=== PATIENT | male | born 1945 | race Caucasian/White ===

== ENCOUNTER 2017-09-09 09:50 | Emergency (ER) | payer MEDICARE ==
[2017-09-09 10:17] LABS: Bilirubin Negative (Negative); Blood, Urine Large (Negative); Clarity CLOUDY (Clear); Glucose, Urine (Dipstick) Negative (Negative); Leukocyte Large (Negative); Nitrite Negative (Negative); Protein, Urine (Dipstick) Negative (Neg-Trace); Specific Gravity, Urine 1.004 (1.002-1.036); Urobilinogen 0.2 mg/dL (0.2-1.0)
[2017-09-09 10:19] LABS: Bacteria/HPF Rare-Few HPF (None Seen); Hyaline Casts/LPF 0-3 HYALINE CAST LPF (0-3 Hyaline); Pathc Cast-AUWi Flag 0.43 (0-2.49); Squamous Epithelial None Seen HPF (0-3)
[2017-09-09 10:36] LABS: ALT (SGPT) 57 U/L (8-55); AST (SGOT) 48 U/L (5-34); Alkaline Phosphatase 102 U/L (40-150); Anion Gap 11 mmol/L (10-20); BUN (Urea Nitrogen) 15 mg/dL (8.4-25.7); Bilirubin, Total 1.1 mg/dL (0.2-1.2); Calc. Creatinine Clearance 0 mL/min (70-130); Calcium 9.2 mg/dL (7.8-10.44); Carbon Dioxide 27 mmol/L (23-31); Chloride 104 mmol/L (98-107); Estimated GFR-MDRD 83; Globulin 3.3 g/dL (2.4-3.5); Glucose 102 mg/dL (80-115); Potassium 4.6 mmol/L (3.5-5.1); Protein, Total 7.3 g/dL (5.8-8.1); Sodium 137 mmol/L (136-145)
[2017-09-09] MEDS ORDERED: Cephalexin 250 MG CAP ONE (10:38)
[2017-09-09 11:13] LABS: Hemoglobin 17.1 g/dL (14.0-18.0); Mean Corpuscular HGB CONC 33.5 g/dL (32.0-36.0); Mean Corpuscular Hemoglobin 31.4 pg (27.0-31.0); Mean Corpuscular Volume 93.7 fl (80.0-94.0); Mean Platelet Volume 6.7 fL (7.4-10.4); Platelet Count 223 thou/uL (130-400); RBC Distribution Width 12.3 % (11.5-14.5); Red Blood Cell (RBC) Count 5.44 mill/uL (4.70-6.10); White Blood Cell (WBC) Count 9.7 thou/uL (4.8-10.8)
[2017-09-09 11:15] LABS: Band 1 % (5-11); Lymphocytes 14 % (21-51); MDiff Complete? YES; Monocytes 9 % (0-10); Neutrophil 76 % (42-75); PLT Morphology Comment Appears Adequate; RBC Morphology Normal
== END 2017-09-09 11:40 | disposition home or self-care (01) ==
LOC: ERS 09:50
DX: N39.0 Urinary tract infection, site not specified (principal); I48.91 Unspecified atrial fibrillation; I10 Essential (primary) hypertension; F32.9 Major depressive disorder, single episode, unspecified; Z79.899 Other long term (current) drug therapy; Z79.01 Long term (current) use of anticoagulants; Z79.82 Long term (current) use of aspirin; Z86.73 Personal history of transient ischemic attack (TIA), and cerebral infarction without residual deficits
CPT/HCPCS: 36415; 80053; 81003; 81015; 85025; 87077; 87086; 87186; 99283

== ENCOUNTER 2019-07-02 14:16 | Outpatient (CLI) | payer MEDICARE ==
--- NOTE | 2019-07-02 16:12 | MRI ---
Exam: MRI cervical spine without contrast HISTORY: Cervical spondylosis with myelopathy. COMPARISON: None FINDINGS: Appropriate T1 marrow signal intensity of the cervical vertebra. Cervical spine vertebral body heigh t is maintained. There is no fracture. No significant STIR hyperintensity to suggest vertebral body edema or ligamentous injury. Visualized brain parenchyma, cervicomedullary junction, cervical cord and the upper thoracic cord hav e a normal size and signal intensity Spondylolisthesis: C2-C3: 2.4 mm of anterolisthesis C3-C4: 2.2 mm of anterolisthesis C4-C5: 3.7 mm of anterolisthesis C5-C6: 2.4 mm of retrolisthesis C2-C3: No significant central canal stenosis. Bilateral facet hypertrophy. Mild to moderate bilateral neural foraminal narrowing. C3-C4: Broad-based disc osteophyte complex abuts the thecal sac. Subarachnoid space is maintained. Mi ld central canal stenosis. Moderate bilateral facet hypertrophy as well as degenerative change of the uncovertebral joints. Moderate bilateral neural foraminal narrowing C4-C5: Broad-based discussed by complex abuts the thecal sac. Subarachnoid space is maintained. No si gnificant central canal stenosis. Moderate right facet hypertrophy. Moderate right and left foraminal narrowing due to uncovertebral hypertrophy as well as right-sided facet hypertrophy. C5-C6: Broad-based discussed by complex with severe loss of disc space height. Mild central canal maty nosis. Moderate to severe right and left neural foraminal narrowing. C6-C7: Broad-based discussed by complex abuts the thecal sac. Mild central canal stenosis. Moderate t o severe bilateral neural foraminal C7-T1: No significant central canal stenosis. Mild right neural foraminal narrowing. Left neural fora men is patent. T1-T2: Sagittal images demonstrate grade 1 anterolisthesis of T1 upon T2 IMPRESSION: Degenerative changes of the cervical spine as described above. Transcribed Date/Time: 07/02/2019 4:27 PM
== END 2019-07-02 14:17 | disposition home or self-care (01) ==
LOC: TBSIIMAG 14:16
PROVIDERS: ATTEND Neurological Surgery
DX: M47.12 Other spondylosis with myelopathy, cervical region (principal); M47.812 Spondylosis without myelopathy or radiculopathy, cervical region
CPT/HCPCS: 72141

== ENCOUNTER 2019-08-11 06:49 | Outpatient (CLI) | payer MEDICARE ==
[2019-08-11 12:42] LABS: Mean Corpuscular HGB CONC 31.9 g/dL (32.0-36.0); Mean Corpuscular Volume 91.1 fL (78.0-98.0); Mean Platelet Volume 7.8 fL (7.4-10.4); Platelet Count 196 thou/uL (130-400); RBC Distribution Width 14.4 % (11.5-14.5); Red Blood Cell (RBC) Count 5.52 mill/uL (4.70-6.10); White Blood Cell (WBC) Count 5.7 thou/uL (4.8-10.8)
[2019-08-11 12:58] LABS: PTT 29.5 SEC (22.9-36.1); Prothrombin Time 13.3 SEC (12.0-14.7)
--- NOTE | 2019-08-11 16:31 | EKG ---
Test Reason : Blood Pressure : / mmHG Vent. Rate : 086 BPM Atrial Rate : 086 BPM P-R Int : 138 ms QRS Dur : 094 ms QT Int : 356 ms P-R-T Axes : 028 -07 024 degrees QTc Int : 426 ms Sinus rhythm with occasional Premature ventricular complexes Otherwise normal ECG No previous ECGs available Confirmed by DR. Jim ITNOCO ([id number]) on 08/11/2019 4:31:13 PM Referred By: ARDEN Confirmed By:DR. Jim TINOCO
== END 2019-08-11 06:50 | disposition home or self-care (01) ==
LOC: LABBT 06:49
PROVIDERS: ATTEND Neurological Surgery
DX: Z01.818 Encounter for other preprocedural examination (principal); M48.061 Spinal stenosis, lumbar region without neurogenic claudication
CPT/HCPCS: 85027; 85610; 85730; 93005; 93010

== ENCOUNTER 2019-08-14 10:44 | Day surgery (SDC) | payer MEDICARE ==
[2019-08-11 11:33] VITALS: BMI 31.6
--- NOTE | 2019-08-13 08:28 | HP ---
ANTICIPATED DATE OF SURGERY: 08/14/2019, for a foramin facet laminectomy, case #[id number]. CHIEF COMPLAINT: "My back and legs hurt." HISTORY OF PRESENT ILLNESS: Cheo Campos is a 74-year-old male with a history of Guillain Fowler syndrome, stroke, and chronic back pain, who comes in for evaluation of back pain as well as radiating leg discomfort. Mr. Campos had this back and leg trouble for a number of years. He works as a rodriges for construction company and over the years, he has worsening back issues. At times, he has been managed with injections. He has experience his back going out for weeks where he could not work. He has done some modifications to his activities to get the pain to go away and he has taken a number of medications over decades. None of this has made permanent difference. He is here to see if decompression would be an option for him. He has questions about VertiFlex device as well as laminectomy. Mr. 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 He ended having a tracheostomy from that and paralysis from the neck down, only to have all his functions return slowly thereafter. In August 2017, he stated that he suffered a stroke and was seen at the [facility] in [place]. They tried a catheter-based treatment, but the vessels were too small to retrieve clot, or a stent. He recovered from both of these episodes. He has been able to work and be productive at work. Mr. Campos has some urinary urgency, but no yanira incontinence. He has leg symptoms that are more prominent on the right than the left currently, but they change from side to side. There is residual numbness from the Guillain-Fowler syndrome in both his feet. PAST MEDICAL HISTORY: Arthritis, allergies, blood clots in the past, chronic pain, depression, heart disease, hypertension, stroke, and Guillain-Mathews syndrome. PAST SURGICAL HISTORY: Shoulder replacement, knee surgery, and herniorrhaphy. HOSPITALIZATION: 1990 for Guillain-Fowler. MEDICATIONS: Currently, there are no available medications in the chart. This includes Eliquis. ALLERGIES: ALEVE adverse reaction. FAMILY HISTORY: There is family history of heart disease in mother. Both his parents have . His children are healthy and alive. SOCIAL HISTORY: Mr. Campos has quit smoking. He does not use illicit drugs or alcohol. He is and lives with his spouse. REVIEW OF SYSTEMS: Otherwise, negative. PHYSICAL EXAMINATION: VITAL SIGNS: 5 feet tall, weighs 200 pounds. GENERAL: He is awake and alert on exam. NEUROLOGIC: His speech is fluent without dysphasia or dysarthria. Cranial nerves work well. Motor examination, there is weakness in the right biceps compared to the left. There is also weakness in the anterior tib bilaterally, left more than right. On sensory exam, there is Tinel at the wrist on the right side. There is no dermatomal sensory loss in the upper extremity currently. There is an L5 sensory alteration on the left compared to the right. The other dermatomes are symmetric. The knee jerk on the left is hypoactive and the ankle jerk is absent. The knee jerk on the right is hyperactive and abnormal. There is no clonus. There is an equivocal toe on the right and downward toe on the left. IMAGE STUDIES: MRI scan showed degenerative spine disease, multiple interspaces in the lumbar and lower thoracic spine. There is a canal stenosis that is quite severe at L3-L4 and L4-L5. There is foraminal stenosis that is severe, more so on the left than the right. Flexion-extension x-rays do not show instability. There is no current image of the cervical spine. IMPRESSION: 1. Possible myopathy with some hand numbness and brisk reflexes on the right. 2. Neurogenic claudication from severe lumbar stenosis. 3. Anticoagulation use. Mr. Campos has tried chiropractor manipulation. He has tried medication. He has modified his activities. He has had injections. His pain continues despite years of nonsurgical treatment. He was offered decompression laminectomy and he would like to proceed with surgery. PLAN: Foramin facet laminectomy. Mr. Campos will need to be off Eliquis one week before surgery and two weeks after surgery. He can remain on a baby aspirin. If a full-strength aspirin is necessary, he will have to stay in the hospital after surgery. He will need to be cleared by anesthesia prior to surgery. INFORMED CONSENT: I discussed indications, risks, benefits, alternatives, and expected outcomes from surgery. The risks discussed include, but are not limited to, bleeding, infection, CSF leak, nerve root damage, cauda equina injury, paralysis, incontinence, wheelchair dependency, major blood vessel injury, cardiopulmonary complications of anesthesia, and . Long-term risks include the need for future surgery and spinal instability. The patient understands the discussion and is willing to proceed. Job ID: [id number] MTDD
[2019-08-14] MEDS ORDERED: Glycopyrrolate 0.2 MG/ML 5 ML SYRINGE ONE (11:02)
[2019-08-14] MEDS ORDERED: Ketorolac Tromethamine 30 MG/ML VIAL ONE (11:02)
[2019-08-14] MEDS ORDERED: EPHEDRINE 25 MG/5 ML SYRINGE ONE (11:02)
[2019-08-14] MEDS ORDERED: Rocuronium Bromide 10 MG/ML (10ML VIAL) ONE (11:02)
[2019-08-14] MEDS ORDERED: Dexamethasone 20 MG/5 ML VIAL ONE (11:02)
[2019-08-14] MEDS ORDERED: Lidocaine 1% PF 5 ML VIAL ONE (11:02)
[2019-08-14] MEDS ORDERED: PROPOFOL 200 MG/20 ML VIAL ONE (11:02)
[2019-08-14] MEDS ORDERED: PHENYLEPHRINE-NS 100 MCG/ML 10 ML SYRINGE ONE ×2 (11:02→13:57)
[2019-08-14] MEDS ORDERED: Bupivacaine PF 0.5% 30 ML VIAL ONE (11:52)
[2019-08-14] MEDS ORDERED: Thrombin 5000 UNITS/5 ML VIAL ONE (11:52)
[2019-08-14] MEDS ORDERED: EPINEPHrine 1 MG/ML AMP ONE (11:52)
[2019-08-14] MEDS ORDERED: Midazolam HCl 2 mg/2 ml Vial ONE (12:16)
[2019-08-14] MEDS ORDERED: Fentanyl 100 MCG/2 ML VIAL ONE ×6 (12:27→16:20)
[2019-08-14] MEDS ORDERED: Promethazine HCl 25 MG/ML VIAL IM PRN ×2 (15:22→15:40)
[2019-08-14] MEDS ORDERED: Acetaminophen/Codeine 30-300mg Tablet PO PRN ×2 (15:22)
[2019-08-14] MEDS ORDERED: Morphine 2 MG/ML SYRINGE SLOW IVP PRN (15:22)
[2019-08-14] MEDS ORDERED: Promethazine 25 MG TAB PO PRN (15:22)
[2019-08-14] MEDS ORDERED: Ondansetron PF 4 MG/2 ML Vial IVP PRN (15:22)
[2019-08-14] MEDS ORDERED: tiZANidine HCl 4 MG TAB PO PRN (15:22)
[2019-08-14] MEDS ORDERED: diphenhydrAMINE 50 MG/ML VIAL IVP PRN (15:22)
[2019-08-14] MEDS ORDERED: Morphine 4 MG/ML VIAL SLOW IVP PRN (15:22)
[2019-08-14] MEDS ORDERED: diphenhydrAMINE 25 MG CAP PO PRN (15:22)
[2019-08-14] MEDS ORDERED: Bisacodyl 10 MG SUPP PR PRN (15:22)
[2019-08-14] MEDS ORDERED: Promethazine HCl 12.5 MG SUPP PR PRN (15:22)
[2019-08-14] MEDS ORDERED: Milk Of Magnesia 30 ML UDCUP PO PRN (15:22)
[2019-08-14] MEDS ORDERED: Mag-Al 1200 mg/1200 mg/30 ML UDCUP PO PRN (15:22)
[2019-08-14] MEDS ORDERED: Acetaminophen 650 MG Suppository PR PRN (15:22)
[2019-08-14] MEDS ORDERED: traMADol HCl 50 MG TAB PO PRN ×2 (15:22)
[2019-08-14] MEDS ORDERED: Acetaminophen 325 MG TAB PO PRN (15:22)
[2019-08-14] MEDS ORDERED: ALPRAZolam 1 MG TAB PO PRN (15:27)
[2019-08-14] MEDS ORDERED: HYDROmorphone 2 MG/ML VIAL SLOW IVP PRN (15:40)
[2019-08-14] MEDS ORDERED: Promethazine HCl 25 MG/ML VIAL SLOW IVP PRN (15:40)
[2019-08-14] MEDS ORDERED: Ondansetron HCl/PF 4 MG/2 ML Vial IVP PRN (15:40)
[2019-08-14] MEDS ORDERED: PACU-Morphine 4MG/ML VIAL SLOW IVP PRN (15:40)
--- NOTE | 2019-08-14 15:45 | OP ---
DATE OF PROCEDURE: 08/14/2019 RESEARCH AND DEVELOPMENT SPECIALIST: Fabio Alexandre PA-C PREOPERATIVE INDICATION: Treat pain and prevent neurological deterioration. PREOPERATIVE DIAGNOSIS: Lumbar stenosis with neurogenic claudication and foraminal disease at L3-L4 and L4-L5. POSTOPERATIVE DIAGNOSIS: Lumbar stenosis with neurogenic claudication and foraminal disease at L3-L4 and L4-L5. PROCEDURES PERFORMED: Decompressive laminectomy, medial facetectomy, and foraminotomy, L3-L4. PREOPERATIVE MEDICATIONS: Ancef 2 g IV. DRAIN NUMBER: Zero. DRAIN TYPE: None. DESCRIPTION OF PROCEDURE: The patient was brought to the operating room. General endotracheal anesthesia was induced. The patient was positioned on the operating table prone with his chest and hips supported by gel-filled chest rolls. A lateral fluoro radiograph was used to plan our incision. The lumbar skin was sterilely prepped and draped. We opened with a 10 blade knife and controlled bleeding with bipolar and monopolar cautery. We used monopolar cautery to dissect through subcutaneous tissues to the thoracodorsal fascia. We incised the fascia in the midline and reflected the paraspinal muscles off the spinous process and lamina of L3, L4 and the superior portion of L5. A lateral fluoro radiograph confirmed the levels upon which we were operating. We placed self-retaining retractors. We then removed the spinous process of L3, L4 and the superior portion of L5 with Adson rongeurs. With the high-speed drill and a gabby bit, we thinned the lamina of L3, L4 and the superior portion of L5. Kerrison rongeurs were used to fashion a laminectomy down the midline. The laminectomy was completed from the pedicles of L3 all the way past the pedicles of L5. In order to decompress the lateral recesses, we had to do significant medial facetectomies at L3-L4 and L4-L5 bilaterally. A Lozada ball probe was inhibited in exiting the spine around the left greater than right nerve roots. Foraminotomies were performed over the nerve roots until ball probe could pass through each foramen around the L3, L4, and L5 nerve roots. With our decompression secured, we turned our attention to hemostasis. Ventral epidural bleeding was controlled with gentle bipolar cautery. We waxed the bone edges. We infused local anesthetic in the paraspinal muscles. We irrigated copiously with bacitracin irrigation. We closed the wound in anatomic layers and we applied a sterile dressing. This was a clean case, no contamination. Job ID: [id number]
[2019-08-14] MEDS ORDERED: Scopolamine 1.5 mg/72 hour Patch TD SCH (16:00)
[2019-08-14] MEDS ORDERED: Tamsulosin HCl 0.4 MG CAP ONE (16:10)
[2019-08-14] MEDS: Sodium Chloride 0.9% 1,000 ML IV SCH (17:11)
[2019-08-14] MEDS: DULoxetine 60 MG CAP PO SCH (20:24)
[2019-08-14] MEDS: CEFAZOLIN 2 GM in Premix Bag 1 BAG IVPB SCH (20:24)
[2019-08-14] MEDS ORDERED: Melatonin 3 MG TAB PO PRN (22:34)
[2019-08-15] MEDS: CEFAZOLIN 2 GM in Premix Bag 1 BAG IVPB SCH (03:45)
[2019-08-15] MEDS ORDERED: Tamsulosin HCl 0.4 MG CAP PO SCH (06:00)
[2019-08-15] MEDS ORDERED: Levothyroxine Sodium 88 MCG TAB PO SCH (06:00)
[2019-08-15] MEDS: Sodium Chloride 0.9% 1,000 ML IV SCH (06:43)
--- NOTE | 2019-08-15 07:26 | PRG ---
DATE OF SERVICE: 08/15/2019 Cheo Campos is one day out from a lumbar decompression. He had no vascular events overnight. He complains of some soreness in his back when he gets up and moves, but the leg pain is better. Among the electronically recorded vital signs, I do not see any fevers. Oxygen saturation has been in the low 90s, but it was prior to the operation itself. On examination, there is good neurological function in lower extremities. Mr. Campos had some urinary difficulty yesterday. His Guillain-Sisseton episode years ago, has left him with some residual deficits and this may be one of them, because he had some incontinence briefs on prior to surgery. Mr. Campos is satisfied that his urinary function has returned to his baseline, when the other activities of daily living are safe, then he can be discharged home. He can restart aspirin 81 mg daily tomorrow, but he should not restart Plavix or Pradaxa for 13 more days. Job ID: [id number] [facility]
[2019-08-15] MEDS ORDERED: Sotalol HCl 80 MG TAB PO SCH (09:00)
[2019-08-15] MEDS ORDERED: Ezetimibe 10 MG TAB PO SCH (09:00)
[2019-08-15] MEDS ORDERED: Lisinopril 5 MG TAB PO SCH (09:00)
[2019-08-15] MEDS ORDERED: Atorvastatin Calcium 10 MG TAB PO SCH (09:00)
[2019-08-15] MEDS: DULoxetine 60 MG CAP PO SCH (09:29)
[2019-08-15 09:30] VITALS: BP 125/75
[2019-08-15 10:14] VITALS: TEMP 97.6
--- NOTE | 2019-08-15 14:04 | PDOC.HOSPP ---
- Subjective Encounter Date: 08/15/19 Encounter Time: 08:00 Subjective: Patient seen and examined. No new complaints. No overnight events - Objective Vital Signs & Weight: Vital Signs (12 hours) Temp Pulse Resp BP BP Pulse Ox 08/15/19 09:28 99 125/75 08/15/19 08:00 95 08/15/19 07:45 97.6 F 99 16 125/75 95 08/15/19 04:00 98.1 F 94 20 120/73 92 L Weight Weight 213 lb 13.574 oz I&O: 08/14/19 08/15/19 08/16/19 06:59 06:59 06:59 Intake Total 1475 630 Output Total 1000 300 Balance 475 330 Hospitalist ROS - Review of Systems ENT: denies: ear pain, ear discharge, nose pain, nose discharge, nose congestion , mouth pain, mouth swelling, throat pain, throat swelling, other Respiratory: denies: cough, dry, shortness of breath, hemoptysis, SOB with excertion, pleuritic pain, sputum, wheezing, other Cardiovascular: denies: chest pain, palpitations, orthopnea, paroxysmal noc. dyspnea, edema, light headedness, other Gastrointestinal: denies: nausea, vomiting, abdominal pain, diarrhea, constipation, melena, hematochezia, other Genitourinary: denies: dysuria, frequency, incontinence, hematuria, retention, other Musculoskeletal: denies: neck pain, shoulder pain, arm pain, back pain, hand pain, leg pain, foot pain, other - Exam General Appearance: NAD, awake alert Eye: PERRL, anicteric sclera ENT: normocephalic atraumatic, no oropharyngeal lesions Neck: supple, symmetric, no JVD, no thyromegaly Heart: RRR, no murmur, no gallops, no rubs Respiratory: CTAB, no wheezes, no rales, no ronchi Gastrointestinal: soft, non-tender, non-distended, normal bowel sounds Extremities: no cyanosis, no clubbing, no edema Skin: normal turgor, no lesions Neurological: no focal deficits Musculoskeletal: normal tone, normal strength Psychiatric: normal affect, normal behavior Hosp A/P (1) S/P lumbar laminectomy Code(s): Z98.890 - OTHER SPECIFIED POSTPROCEDURAL STATES Status: Acute (2) PAF (paroxysmal atrial fibrillation) Code(s): I48.0 - PAROXYSMAL ATRIAL FIBRILLATION Status: Chronic (3) Hypertension Code(s): I10 - ESSENTIAL (PRIMARY) HYPERTENSION Status: Chronic (4) Dyslipidemia (high LDL; low HDL) Code(s): E78.5 - HYPERLIPIDEMIA, UNSPECIFIED Status: Chronic (5) Anxiety and depression Code(s): F41.9 - ANXIETY DISORDER, UNSPECIFIED; F32.9 - MAJOR DEPRESSIVE DISORDER, SINGLE EPISODE, UNSPECIFIED Status: Chronic (6) Obesity (BMI 30.0-34.9) Code(s): E66.9 - OBESITY, UNSPECIFIED Status: Chronic - Plan old records reviewed/req medication reviewed and continue to provide supportive care pt is planned for DC by primary team pt is medically stable OK to DC and will sign off
== END 2019-08-15 09:40 | disposition home or self-care (01) ==
LOC: SDC 10:44 → SURG A 15:26 → SDC 08-15 09:40
PROVIDERS: ATTEND Neurological Surgery
PROC: 01NB0ZZ Release Lumbar Nerve, Open Approach (ICD-10-PCS; principal; 2019-08-14)
DX: M48.062 Spinal stenosis, lumbar region with neurogenic claudication (principal); I10 Essential (primary) hypertension; F41.9 Anxiety disorder, unspecified; F32.9 Major depressive disorder, single episode, unspecified; I48.0 Paroxysmal atrial fibrillation; E66.9 Obesity, unspecified; Z68.31 Body mass index [BMI] 31.0-31.9, adult; Z79.01 Long term (current) use of anticoagulants; Z79.82 Long term (current) use of aspirin; Z79.899 Other long term (current) drug therapy; Z86.73 Personal history of transient ischemic attack (TIA), and cerebral infarction without residual deficits; Z87.891 Personal history of nicotine dependence; Z88.6 Allergy status to analgesic agent
CPT/HCPCS: 76000; J0171; J0690; J1100; J1885; J2001; J2250; J2270; J2405; J2704; J3010; J3370; J3490; S0020

== ENCOUNTER 2020-02-24 11:12 | Outpatient (CLI) | payer MEDICARE ==
--- NOTE | 2020-02-24 14:08 | RAD ---
LUMBAR SPINE SERIES FOUR VIEWS TO INCLUDE FLEXION AND EXTENSION: 02/24/20 There is some wedge shaped deformity to the L1 vertebral body. Cupping to the superior end plates of other thoracic vertebral bodies probably related to osteoporosis. Marked degenerative changes are see n with severe facet changes. I do not see any abnormal motion on the flexion or extension views. Ther e is retrolisthesis at the L1-2, L2-3, and L3-4 levels. IMPRESSION: Arthritic changes of the spine as above. POS: SIERRA
== END 2020-02-24 11:13 | disposition home or self-care (01) ==
LOC: RAD 11:12
PROVIDERS: ATTEND Neurological Surgery
DX: M54.5 Low back pain (principal); M47.816 Spondylosis without myelopathy or radiculopathy, lumbar region
CPT/HCPCS: 72120

== ENCOUNTER 2020-03-23 10:48 | Outpatient (CLI) | payer MEDICARE ==
--- NOTE | 2020-03-23 14:02 | CT ---
CT lumbar spine noncontrast: 03/23/2020 HISTORY: Low back pain. Lumbar stenosis. COMPARISON: None FINDINGS: 5 lumbar-type vertebrae. T12-L1: Mild disc space narrowing. Diffuse disc bulge. No significant central or neural foraminal maty nosis. L1: Chronic anterior wedging of L1, with maximum of 50% anterior loss of height. No bony retropulsion . L1-2: Severe narrowing of the posterior third of the disc space, with vacuum disc phenomenon and scle rosis. Broad-based disc-osteophyte complex indents the ventral aspect of the thecal sac,, and causes mild to moderate central spinal canal stenosis, especially on the right side. High-grade right neural foraminal stenosis. Low-grade left neural foraminal stenosis. Chronic grade 1 right lateral subluxation of L1 on L2. L2-3: This is the level for the apex of the levoscoliosis. Severe right-sided degenerative disc frankel es, with severe right disc space narrowing, right vacuum disc phenomenon, large right lateral and far lateral endplate marginal osteophytes, endplate sclerosis, with numerous endplate small defects. Retrolisthesis of L2 on L3. Broad-based disc-osteophyte complex indents the ventral aspect of thecal sac, causing moderate central spinal canal stenosis. High-grade right neural foraminal stenosi s. Low-grade left neural foraminal stenosis. L3-4: Chronic left lateral grade 1 subluxation of L3 on L4. Severe degenerative changes involving the posterior aspect of the disc space. Retrolisthesis of L3 on L4. No bony high-grade central spinal canal stenosis because of a combination by midline laminectomy defect. High-grade right neural forami nal stenosis. Also high-grade left neural foraminal stenosis, apparently severe. Severe right and probably severe left facet DJD. L4: Midline laminectomy defect. L4-5: High-grade posterior disc space narrowing. Retrolisthesis of L4 on L5. Severe right-sided degen erative disc disease. High-grade right neural foraminal stenosis, probably severe. High-grade left neural foraminal stenosis. Midline laminectomy defect. No central spinal canal stenosis. Severe left and moderate right facet DJD. L5: Broad indentation of superior endplate of L5. Laminectomy defect. L5-S1: Disc space maintained. Diffuse disc bulge. Mild to moderate bilateral neural foraminal stenosi s. No central spinal canal stenosis. Mild to moderate bilateral facet DJD. Diffuse mixed sclerotic and lucent changes throughout the vertebral bodies and posterior elements of all visualized portions of the sacrum, S1 through mid S4. IMPRESSION: 1.) Diffuse mixed sclerotic and lucent changes throughout all visualized portions of the sacrum. Poss ibilities include nonacute, nondisplaced sacral insufficiency fractures versus osseous metastatic disease. 2) severe lumbar spondylosis with multilevel high-grade degenerative disc disease and high-grade face t osteoarthrosis. 3) status post midline laminectomies from L3-4 through L4-5. 4) multilevel high-grade neural foraminal stenosis, including severe. 5) scoliosis
== END 2020-03-23 10:49 | disposition home or self-care (01) ==
LOC: BICCT 10:48
PROVIDERS: ATTEND Neurological Surgery
DX: M48.061 Spinal stenosis, lumbar region without neurogenic claudication (principal); M47.816 Spondylosis without myelopathy or radiculopathy, lumbar region; M51.36 Other intervertebral disc degeneration, lumbar region; M89.9 Disorder of bone, unspecified; M41.9 Scoliosis, unspecified; M48.07 Spinal stenosis, lumbosacral region
CPT/HCPCS: 72131

== ENCOUNTER 2021-04-03 13:14 | Emergency (ER) | payer OTHER, MEDICARE ==
[2021-04-03] MEDS ORDERED: Bacitracin 1 PK ONE (14:23)
[2021-04-03] MEDS ORDERED: Lidocaine 1% w/Epinephrine 1:100K 20 ML VIAL ONE (14:55)
== END 2021-04-03 15:33 | disposition home or self-care (01) ==
LOC: ERS 13:14
DX: S01.81XA Laceration without foreign body of other part of head, initial encounter (principal); I48.91 Unspecified atrial fibrillation; I10 Essential (primary) hypertension; Z86.73 Personal history of transient ischemic attack (TIA), and cerebral infarction without residual deficits; Z79.899 Other long term (current) drug therapy; Z79.82 Long term (current) use of aspirin; W01.198A Fall on same level from slipping, tripping and stumbling with subsequent striking against other object, initial encounter; Y93.01 Activity, walking, marching and hiking; Y92.89 Other specified places as the place of occurrence of the external cause
CPT/HCPCS: 12011; 70450; 72125

== ENCOUNTER 2021-06-15 09:08 | Outpatient (CLI) | payer MEDICARE, OTHER | END 2021-06-15 09:09 | disposition home or self-care (01) | LOC: PET 09:08 | PROVIDERS: ATTEND Internal Medicine Hematology & Oncology | DX: C83.12 Mantle cell lymphoma, intrathoracic lymph nodes (principal); R59.0 Localized enlarged lymph nodes | CPT/HCPCS: 78815; A9552 ==

== ENCOUNTER 2021-07-20 09:49 | Inpatient (IN) | payer OTHER ==
[2021-07-20] MEDS ORDERED: Aspirin Chewable 81 MG TAB ONE (10:15)
[2021-07-20 10:40] LABS: Hemoglobin 11.6 g/dL (14.0-18.0); Mean Corpuscular HGB CONC 33.2 g/dL (32.0-36.0); Mean Corpuscular Hemoglobin 31.2 pg (27.0-31.0); Mean Corpuscular Volume 94.1 fL (78.0-98.0); Mean Platelet Volume 6.3 fL (7.4-10.4); Platelet Count 248 thou/uL (130-400); RBC Distribution Width 12.2 % (11.5-14.5); Red Blood Cell (RBC) Count 3.71 mill/uL (4.70-6.10); White Blood Cell (WBC) Count 7.7 thou/uL (4.8-10.8)
[2021-07-20 10:46] LABS: INR-International Normal Ratio 1.5; Prothrombin Time 18.2 sec (12.0-14.7)
[2021-07-20 11:07] LABS: Chloride 99 mmol/L (98-107); Potassium 4.4 mmol/L (3.5-5.1); Sodium 132 mmol/L (136-145)
[2021-07-20 11:08] LABS: Band 13 % (5-11); Lymphocytes 5 % (21-51); MDiff Complete? YES; Monocytes 14 % (0-10); Neutrophil 68 % (42-75); Platelet Morphology Comment Appears Adequate; Polychromasia SLIGHT = 2-3 cells (100X) (0-2/hpf)
[2021-07-20 11:21] LABS: ALT (SGPT) 35 U/L (8-55); AST (SGOT) 28 U/L (5-34); Albumin 3.2 g/dL (3.4-4.8); Alkaline Phosphatase 227 U/L (40-110); Anion Gap 14 mmol/L (10-20); BUN (Urea Nitrogen) 27 mg/dL (8.4-25.7); Bilirubin, Total 0.9 mg/dL (0.2-1.2); Calc. Creatinine Clearance 0 mL/min (70-130); Calcium 8.7 mg/dL (7.8-10.44); Carbon Dioxide 24 mmol/L (23-31); Globulin 2.9 g/dL (2.4-3.5); Glucose 110 mg/dL (83-110); Protein, Total 6.1 g/dL (5.8-8.1)
[2021-07-20 16:22] LABS: Troponin I 0.014 ng/mL (< 0.028)
[2021-07-20 17:30] LABS: Troponin I Less than 0.010 ng/mL (< 0.028)
[2021-07-20] MEDS ORDERED: Ondansetron PF 4 MG/2 ML Vial IVP PRN (18:30)
[2021-07-20] MEDS ORDERED: Ondansetron ODT 4 MG TAB SL PRN (18:30)
[2021-07-20 18:49] VITALS: BMI 24.6
[2021-07-20 19:04] LABS: SARS-CoV-2 NAA Rapid Test DETECTED (NotDetected)
[2021-07-20] MEDS ORDERED: B & O 30 MG SUPP PR PRN (20:00)
[2021-07-20] MEDS: Cyclobenzaprine 10 MG TAB PO SCH (20:30)
[2021-07-20] MEDS: Gabapentin 300 MG CAP PO SCH (20:30)
[2021-07-20] MEDS ORDERED: ceFAZolin 2 GM/Dextrose 50 ML 2 GM in Premix Bag 1 BAG IVPB SCH (20:30)
[2021-07-20] MEDS: DULoxetine 60 MG CAP PO SCH (20:30)
[2021-07-20] MEDS: Oxybutynin 5 MG TAB PO SCH (20:30)
[2021-07-20] MEDS: Acetaminophen 325 MG TAB PO PRN (20:31)
[2021-07-20] MEDS: Cholecalciferol 1,000 UNITS (25 MCG) TAB PO SCH (20:31)
[2021-07-20 22:15] LABS: Bacteria/HPF None Seen HPF (None Seen); Bilirubin Negative (Negative); Blood, Urine Negative (Negative); Clarity Clear (Clear); Glucose, Urine (Dipstick) Normal (Negative); Ketone, Urine Negative (Negative); Leukocyte Negative Leu/uL (Negative); Nitrite Negative (Negative); Protein, Urine (Dipstick) Negative (Neg-Trace); RBC/HPF 0-3 HPF (0-3); Specific Gravity, Urine 1.023 (1.002-1.036); Squamous Epithelial None Seen HPF (0-3); Urobilinogen Normal mg/dL (Less than 2); WBC/HPF 0-3 HPF (0-3); pH, Urine 5.5 (5.0-9.0)
[2021-07-20 22:16] LABS: Urine Culture Reflex No No
[2021-07-21 06:16] LABS: Cardiac Risk 5.9 (Less than 4.5)
[2021-07-21 06:33] LABS: Anion Gap 12 mmol/L (10-20); BUN (Urea Nitrogen) 18 mg/dL (8.4-25.7); Calc. Creatinine Clearance 89 mL/min (70-130); Calcium 9.6 mg/dL (7.8-10.44); Carbon Dioxide 29 mmol/L (23-31); Chloride 100 mmol/L (98-107); Glucose 101 mg/dL (83-110); Potassium 4.5 mmol/L (3.5-5.1); Sodium 136 mmol/L (136-145)
[2021-07-21 06:45] LABS: Hemoglobin 12.1 g/dL (14.0-18.0); Mean Corpuscular HGB CONC 33.7 g/dL (32.0-36.0); Mean Corpuscular Hemoglobin 32.1 pg (27.0-31.0); Mean Corpuscular Volume 95.1 fL (78.0-98.0); Mean Platelet Volume 6.5 fL (7.4-10.4); Platelet Count 239 thou/uL (130-400); RBC Distribution Width 12.3 % (11.5-14.5); Red Blood Cell (RBC) Count 3.78 mill/uL (4.70-6.10); White Blood Cell (WBC) Count 5.9 thou/uL (4.8-10.8)
[2021-07-21 06:49] LABS: Band 11 % (5-11); Lymphocytes 7 % (21-51); MDiff Complete? YES; Monocytes 16 % (0-10); Neutrophil 66 % (42-75); Toxic Granulation SLIGHT
[2021-07-21] MEDS: Ascorbic Acid 500 mg Chewable Tablet PO SCH (08:08)
[2021-07-21] MEDS: Aspirin Chewable 81 MG TAB PO SCH (08:08)
[2021-07-21] MEDS: DULoxetine 60 MG CAP PO SCH ×2 (08:08→20:38)
[2021-07-21] MEDS: Acetaminophen 325 MG TAB PO PRN ×2 (08:08→20:35)
[2021-07-21] MEDS: Zinc Sulfate 220 MG CAP PO SCH (08:09)
[2021-07-21] MEDS: Ezetimibe 10 MG TAB PO SCH (08:09)
[2021-07-21] MEDS: Gabapentin 300 MG CAP PO SCH ×3 (08:09→20:37)
[2021-07-21] MEDS: Cefepime 2 GM in Sodium Chloride 0.9% 100 ML IVPB SCH ×2 (10:02→20:37)
[2021-07-21] MEDS: Atorvastatin Calcium 10 MG TAB PO SCH (20:37)
[2021-07-21] MEDS: Cyclobenzaprine 10 MG TAB PO SCH (20:37)
[2021-07-21] MEDS: Apixaban 5 MG TAB PO SCH (20:38)
[2021-07-21] MEDS: Oxybutynin 5 MG TAB PO SCH (20:38)
[2021-07-21] MEDS: Cholecalciferol 1,000 UNITS (25 MCG) TAB PO SCH (20:41)
[2021-07-22 06:04] LABS: Anion Gap 11 mmol/L (10-20); BUN (Urea Nitrogen) 17 mg/dL (8.4-25.7); Calc. Creatinine Clearance 89 mL/min (70-130); Calcium 9.2 mg/dL (7.8-10.44); Carbon Dioxide 30 mmol/L (23-31); Chloride 98 mmol/L (98-107); Glucose 97 mg/dL (83-110); Potassium 4.2 mmol/L (3.5-5.1); Sodium 135 mmol/L (136-145)
[2021-07-22 06:07] LABS: Band 16 % (5-11); Hemoglobin 11.9 g/dL (14.0-18.0); Lymphocytes 3 % (21-51); MDiff Complete? YES; Mean Corpuscular HGB CONC 32.8 g/dL (32.0-36.0); Mean Corpuscular Hemoglobin 31.5 pg (27.0-31.0); Mean Corpuscular Volume 96.1 fL (78.0-98.0); Mean Platelet Volume 6.3 fL (7.4-10.4); Monocytes 13 % (0-10); Neutrophil 68 % (42-75); Platelet Count 260 thou/uL (130-400); Platelet Morphology Comment Appears Adequate; RBC Distribution Width 12.4 % (11.5-14.5); Red Blood Cell (RBC) Count 3.77 mill/uL (4.70-6.10); White Blood Cell (WBC) Count 5.9 thou/uL (4.8-10.8)
[2021-07-22] MEDS: Aspirin Chewable 81 MG TAB PO SCH (07:55)
[2021-07-22] MEDS: Apixaban 5 MG TAB PO SCH ×2 (07:55→21:01)
[2021-07-22] MEDS: Gabapentin 300 MG CAP PO SCH ×3 (07:55→21:01)
[2021-07-22] MEDS: Cefepime 2 GM in Sodium Chloride 0.9% 100 ML IVPB SCH (07:55)
[2021-07-22] MEDS: DULoxetine 60 MG CAP PO SCH ×2 (07:55→21:02)
[2021-07-22] MEDS: Ascorbic Acid 500 mg Chewable Tablet PO SCH (07:55)
[2021-07-22] MEDS: Ezetimibe 10 MG TAB PO SCH (07:55)
[2021-07-22] MEDS: Zinc Sulfate 220 MG CAP PO SCH (07:56)
[2021-07-22] MEDS: Atorvastatin Calcium 10 MG TAB PO SCH (21:00)
[2021-07-22] MEDS: Cyclobenzaprine 10 MG TAB PO SCH (21:00)
[2021-07-22] MEDS: Cefdinir 300 MG CAP PO SCH (21:01)
[2021-07-22] MEDS: Oxybutynin 5 MG TAB PO SCH (21:01)
[2021-07-22] MEDS: Cholecalciferol 1,000 UNITS (25 MCG) TAB PO SCH (21:02)
[2021-07-23] MEDS: Acetaminophen 325 MG TAB PO PRN (05:12)
[2021-07-23] MEDS: Apixaban 5 MG TAB PO SCH ×2 (08:36→21:07)
[2021-07-23] MEDS: Gabapentin 300 MG CAP PO SCH ×3 (08:36→21:08)
[2021-07-23] MEDS: Aspirin Chewable 81 MG TAB PO SCH (08:36)
[2021-07-23] MEDS: DULoxetine 60 MG CAP PO SCH ×2 (08:36→21:08)
[2021-07-23] MEDS: Cefdinir 300 MG CAP PO SCH (08:37)
[2021-07-23] MEDS: Ezetimibe 10 MG TAB PO SCH (08:37)
[2021-07-23] MEDS: Ascorbic Acid 500 mg Chewable Tablet PO SCH (08:37)
[2021-07-23] MEDS: Zinc Sulfate 220 MG CAP PO SCH (08:43)
[2021-07-23] MEDS: HYDROcodone/Acetaminophen 10/325 mg Tablet PO PRN ×2 (11:21→17:31)
[2021-07-23] MEDS: Atorvastatin Calcium 10 MG TAB PO SCH (21:07)
[2021-07-23] MEDS: Cholecalciferol 1,000 UNITS (25 MCG) TAB PO SCH (21:07)
[2021-07-23] MEDS: Cyclobenzaprine 10 MG TAB PO SCH (21:07)
[2021-07-23] MEDS: Oxybutynin 5 MG TAB PO SCH (21:08)
[2021-07-24 06:02] LABS: Band 14 % (5-11); Hemoglobin 11.4 g/dL (14.0-18.0); Lymphocytes 3 % (21-51); MDiff Complete? YES; Mean Corpuscular HGB CONC 33.2 g/dL (32.0-36.0); Mean Corpuscular Hemoglobin 31.6 pg (27.0-31.0); Mean Corpuscular Volume 95.4 fL (78.0-98.0); Mean Platelet Volume 6.5 fL (7.4-10.4); Metamyelocyte 6 % (0-0); Monocytes 13 % (0-10); Myelocyte 1 % (0-0); Neutrophil 63 % (42-75); Platelet Count 276 thou/uL (130-400); Platelet Morphology Comment Appears Adequate; RBC Distribution Width 12.8 % (11.5-14.5); White Blood Cell (WBC) Count 5.5 thou/uL (4.8-10.8)
[2021-07-24 06:09] LABS: ALT (SGPT) 33 U/L (8-55); AST (SGOT) 32 U/L (5-34); Albumin 2.7 g/dL (3.4-4.8); Alkaline Phosphatase 208 U/L (40-110); Anion Gap 10 mmol/L (10-20); BUN (Urea Nitrogen) 18 mg/dL (8.4-25.7); Bilirubin, Total 1.6 mg/dL (0.2-1.2); CRP (Inflammatory) 21.69 mg/dL (= or < 0.5); Calc. Creatinine Clearance 91 mL/min (70-130); Carbon Dioxide 28 mmol/L (23-31); Chloride 98 mmol/L (98-107); Globulin 3.2 g/dL (2.4-3.5); Glucose 92 mg/dL (83-110); Magnesium 1.8 mg/dL (1.6-2.6); Phosphorus 3.2 mg/dL (2.3-4.7); Potassium 4.2 mmol/L (3.5-5.1); Protein, Total 5.9 g/dL (5.8-8.1); Sodium 132 mmol/L (136-145)
[2021-07-24] MEDS: Apixaban 5 MG TAB PO SCH ×2 (07:54→21:03)
[2021-07-24] MEDS: DULoxetine 60 MG CAP PO SCH ×2 (07:55→21:02)
[2021-07-24] MEDS: Ezetimibe 10 MG TAB PO SCH (07:55)
[2021-07-24] MEDS: Gabapentin 300 MG CAP PO SCH ×3 (07:55→21:02)
[2021-07-24] MEDS: Ascorbic Acid 500 mg Chewable Tablet PO SCH (07:55)
[2021-07-24] MEDS: Aspirin Chewable 81 MG TAB PO SCH (07:55)
[2021-07-24] MEDS: Zinc Sulfate 220 MG CAP PO SCH (07:56)
[2021-07-24] MEDS: HYDROcodone/Acetaminophen 10/325 mg Tablet PO PRN (08:20)
[2021-07-24] MEDS ORDERED: FLU VACC QS2021-22(65YR UP)/PF 240 MCG/0.7 ML SYRINGE IM ONE (09:00)
[2021-07-24] MEDS ORDERED: Carvedilol 3.125 MG TAB PO SCH (17:00)
[2021-07-24] MEDS: Cyclobenzaprine 10 MG TAB PO SCH (21:02)
[2021-07-24] MEDS: Atorvastatin Calcium 10 MG TAB PO SCH (21:03)
[2021-07-24] MEDS: Oxybutynin 5 MG TAB PO SCH (21:03)
[2021-07-24] MEDS: Cholecalciferol 1,000 UNITS (25 MCG) TAB PO SCH (21:03)
[2021-07-25] MEDS: HYDROcodone/Acetaminophen 10/325 mg Tablet PO PRN (03:55)
[2021-07-25 05:11] LABS: ALT (SGPT) 34 U/L (8-55); AST (SGOT) 33 U/L (5-34); Albumin 2.7 g/dL (3.4-4.8); Alkaline Phosphatase 216 U/L (40-110); Anion Gap 12 mmol/L (10-20); BUN (Urea Nitrogen) 18 mg/dL (8.4-25.7); Bilirubin, Total 1.7 mg/dL (0.2-1.2); Calc. Creatinine Clearance 80 mL/min (70-130); Calcium 8.8 mg/dL (7.8-10.44); Carbon Dioxide 27 mmol/L (23-31); Chloride 96 mmol/L (98-107); Globulin 3.2 g/dL (2.4-3.5); Glucose 107 mg/dL (83-110); Magnesium 1.8 mg/dL (1.6-2.6); Phosphorus 3.4 mg/dL (2.3-4.7); Protein, Total 5.9 g/dL (5.8-8.1); Sodium 131 mmol/L (136-145)
[2021-07-25 05:19] LABS: Band 13 % (5-11); Hemoglobin 11.7 g/dL (14.0-18.0); Hypochromia SLIGHT = 6-15 cells (100X) (0-5/hpf); Lymphocytes 2 % (21-51); MDiff Complete? YES; Mean Corpuscular HGB CONC 32.2 g/dL (32.0-36.0); Mean Corpuscular Volume 96.1 fL (78.0-98.0); Mean Platelet Volume 6.5 fL (7.4-10.4); Monocytes 13 % (0-10); Neutrophil 72 % (42-75); Platelet Count 312 thou/uL (130-400); Platelet Morphology Comment Appears Adequate; RBC Distribution Width 12.8 % (11.5-14.5); Red Blood Cell (RBC) Count 3.76 mill/uL (4.70-6.10); White Blood Cell (WBC) Count 5.7 thou/uL (4.8-10.8)
[2021-07-25] MEDS: Apixaban 5 MG TAB PO SCH ×2 (08:20→22:24)
[2021-07-25] MEDS: DULoxetine 60 MG CAP PO SCH ×2 (08:20→22:25)
[2021-07-25] MEDS: Ascorbic Acid 500 mg Chewable Tablet PO SCH (08:20)
[2021-07-25] MEDS: Aspirin Chewable 81 MG TAB PO SCH (08:20)
[2021-07-25] MEDS: Ezetimibe 10 MG TAB PO SCH (08:21)
[2021-07-25] MEDS: Zinc Sulfate 220 MG CAP PO SCH (08:21)
[2021-07-25] MEDS: Gabapentin 300 MG CAP PO SCH ×3 (08:21→22:23)
[2021-07-25 11:12] LABS: Syphilis Antibody Nonreactive (Nonreactive); Syphilis Antibody Index 0.06 S/CO (<1.00 Non-Reactive)
[2021-07-25] MEDS: Acetaminophen 325 MG TAB PO PRN (17:15)
[2021-07-25] MEDS: Carvedilol 3.125 MG TAB PO SCH (17:15)
[2021-07-25] MEDS ORDERED: HYDROcodone/Acetaminophen 10/325 mg Tablet PO PRN (20:32)
[2021-07-25] MEDS ORDERED: Sterile Water 10 ML VIAL FS PRN (20:45)
[2021-07-25] MEDS ORDERED: OLANZapine 10 MG VIAL IM SCH (20:45)
[2021-07-25] MEDS: Atorvastatin Calcium 10 MG TAB PO SCH (22:24)
[2021-07-25] MEDS: Cholecalciferol 1,000 UNITS (25 MCG) TAB PO SCH (22:24)
[2021-07-26 05:09] LABS: Band 15 % (5-11); MDiff Complete? YES; Mean Corpuscular HGB CONC 31.4 g/dL (32.0-36.0); Mean Corpuscular Hemoglobin 29.9 pg (27.0-31.0); Mean Corpuscular Volume 95.5 fL (78.0-98.0); Mean Platelet Volume 6.7 fL (7.4-10.4); Metamyelocyte 3 % (0-0); Monocytes 12 % (0-10); Neutrophil 70 % (42-75); Platelet Count 342 thou/uL (130-400); Platelet Morphology Comment Appears Adequate; RBC Distribution Width 12.9 % (11.5-14.5); Red Blood Cell (RBC) Count 3.69 mill/uL (4.70-6.10); White Blood Cell (WBC) Count 6.5 thou/uL (4.8-10.8)
[2021-07-26 05:18] LABS: ALT (SGPT) 37 U/L (8-55); AST (SGOT) 40 U/L (5-34); Albumin 2.5 g/dL (3.4-4.8); Alkaline Phosphatase 241 U/L (40-110); Anion Gap 12 mmol/L (10-20); BUN (Urea Nitrogen) 20 mg/dL (8.4-25.7); Bilirubin, Total 1.5 mg/dL (0.2-1.2); Calc. Creatinine Clearance 90 mL/min (70-130); Calcium 8.8 mg/dL (7.8-10.44); Carbon Dioxide 29 mmol/L (23-31); Chloride 97 mmol/L (98-107); Globulin 3.3 g/dL (2.4-3.5); Glucose 98 mg/dL (83-110); Magnesium 1.8 mg/dL (1.6-2.6); Phosphorus 3.6 mg/dL (2.3-4.7); Potassium 4.7 mmol/L (3.5-5.1); Protein, Total 5.8 g/dL (5.8-8.1); Sodium 133 mmol/L (136-145)
[2021-07-26 05:36] LABS: HIV (1/2) Antibody/Antigen Non-Reactive (NonReactive); HIV 1/2 INDEX 0.08 S/CO (<1.00)
[2021-07-26] MEDS: DULoxetine 60 MG CAP PO SCH (08:14)
[2021-07-26] MEDS: Aspirin Chewable 81 MG TAB PO SCH (08:14)
[2021-07-26] MEDS: Ezetimibe 10 MG TAB PO SCH (08:14)
[2021-07-26] MEDS: Ascorbic Acid 500 mg Chewable Tablet PO SCH (08:14)
[2021-07-26] MEDS: Apixaban 5 MG TAB PO SCH (08:14)
[2021-07-26] MEDS: Gabapentin 300 MG CAP PO SCH ×2 (08:14→17:06)
[2021-07-26] MEDS: Zinc Sulfate 220 MG CAP PO SCH (08:14)
[2021-07-26] MEDS: Carvedilol 3.125 MG TAB PO SCH ×2 (08:15→17:06)
[2021-07-26] MEDS ORDERED: Folic Acid 1 MG TAB PO SCH (09:00)
[2021-07-26] MEDS ORDERED: Polyethylene Glycol 3350 17 GM Packet PO SCH (11:15)
[2021-07-26 12:56] VITALS: TEMP 97.8
[2021-07-26 17:09] VITALS: BP 114/66
[2021-07-26] MEDS ORDERED: Senokot S 8.6-50 MG TAB PO SCH (21:00)
[2021-07-27] MEDS ORDERED: Polyethylene Glycol 3350 17 GM Packet PO SCH (09:00)
== END 2021-07-26 18:06 | disposition home or self-care (01) | DRG 177 ==
LOC: ERS 09:49 → ERHOLD 12:27 → 2NO 17:52 → 2SW 22:28 → OBSVTOIN 07-21 13:06
PROVIDERS: ADMIT Internal Medicine; ATTEND Family Medicine
PROC: 8E0ZXY6 Isolation (ICD-10-PCS; principal; 2021-07-21)
DX: U07.1 COVID-19 (principal); G93.41 Metabolic encephalopathy; G61.0 Guillain-Barre syndrome; C85.90 Non-Hodgkin lymphoma, unspecified, unspecified site; E87.1 Hypo-osmolality and hyponatremia; R65.10 Systemic inflammatory response syndrome (SIRS) of non-infectious origin without acute organ dysfunction; I10 Essential (primary) hypertension; E78.5 Hyperlipidemia, unspecified; F41.9 Anxiety disorder, unspecified; F32.A Depression, unspecified; I48.0 Paroxysmal atrial fibrillation; E53.8 Deficiency of other specified B group vitamins; K59.00 Constipation, unspecified; Z88.6 Allergy status to analgesic agent; Z79.82 Long term (current) use of aspirin; Z79.899 Other long term (current) drug therapy; Z98.890 Other specified postprocedural states; Z87.891 Personal history of nicotine dependence; I69.398 Other sequelae of cerebral infarction
CPT/HCPCS: 36415; 70450; 70551; 71045; 71275; 76705; 80048; 80053; 80061; 81001; 82607; 82746; 83735; 83880; 84100; 84145; 84443; 84484; 85025; 85610; 85730; 86140; 86780; 87040; 87149; 87389; 93005; 93306; 93880; 96365; 96375; G0378; J0690; J0692; J3490; U0002

== ENCOUNTER 2021-09-09 11:16 | Inpatient (IN) | payer OTHER ==
[2021-09-09] MEDS ORDERED: Ondansetron PF 4 MG/2 ML Vial IVP PRN (21:46)
[2021-09-09] MEDS ORDERED: Acetaminophen 325 MG TAB PO PRN (21:46)
[2021-09-09] MEDS ORDERED: ALPRAZolam 1 MG TAB PO PRN (21:50)
[2021-09-10] MEDS: ALPRAZolam 0.5 MG TAB PO PRN ×2 (00:05→21:57)
[2021-09-10] MEDS: Furosemide 40 MG/4 ML VIAL SLOW IVP SCH ×2 (06:23→13:57)
[2021-09-10 06:32] LABS: Anion Gap 9 mmol/L (10-20); BUN (Urea Nitrogen) 20 mg/dL (8.4-25.7); Calc. Creatinine Clearance 125 mL/min (70-130); Calcium 8.2 mg/dL (7.8-10.44); Carbon Dioxide 37 mmol/L (23-31); Chloride 94 mmol/L (98-107); Glucose 83 mg/dL (83-110); Sodium 136 mmol/L (136-145)
[2021-09-10 06:57] LABS: Anisocytosis SLIGHT = 6-15 cells (100X) (0-5/hpf); Band 15 % (5-11); Eosinophils 1 % (0-10); Hemoglobin 10.4 g/dL (14.0-18.0); Lymphocytes 15 % (21-51); MDiff Complete? YES; Mean Corpuscular HGB CONC 31.1 g/dL (32.0-36.0); Mean Corpuscular Hemoglobin 27.7 pg (27.0-31.0); Mean Corpuscular Volume 88.9 fL (78.0-98.0); Mean Platelet Volume 7.3 fL (7.4-10.4); Metamyelocyte 1 % (0-0); Monocytes 16 % (0-10); Myelocyte 4 % (0-0); Neutrophil 48 % (42-75); Platelet Count 217 thou/uL (130-400); RBC Distribution Width 17.1 % (11.5-14.5); Red Blood Cell (RBC) Count 3.77 mill/uL (4.70-6.10); White Blood Cell (WBC) Count 1.2 thou/uL (4.8-10.8)
[2021-09-10] MEDS: Carvedilol 3.125 MG TAB PO SCH ×2 (09:38→17:00)
[2021-09-10] MEDS: Aspirin 81 mg Enteric Coated Tablet PO SCH (09:38)
[2021-09-10] MEDS: Enoxaparin Sodium 100 MG/ML SYRINGE SC SCH ×2 (09:39→20:15)
[2021-09-10] MEDS: Folic Acid 1 MG TAB PO SCH (09:39)
[2021-09-10] MEDS: DULoxetine 60 MG CAP PO SCH (09:39)
[2021-09-10] MEDS ORDERED: hydrALAZINE 20 MG/ML VIAL SLOW IVP PRN (12:29)
[2021-09-10] MEDS ORDERED: Calcium Carbonate 500 MG ChewTAB PO PRN (12:29)
[2021-09-10] MEDS ORDERED: Moisturizing Cream (Eucerin) 113 GM JAR TOP PRN (12:29)
[2021-09-10] MEDS ORDERED: Artificial Tear Sol 15 ML BOT EA EYE PRN (12:29)
[2021-09-10] MEDS ORDERED: GUAIFENESIN SF SOLN 200 MG/10 ML UDCUP PO PRN (12:29)
[2021-09-10] MEDS ORDERED: Loperamide HCl 2 MG CAP PO PRN (12:29)
[2021-09-10] MEDS ORDERED: Senokot S 8.6-50 MG TAB PO PRN (12:29)
[2021-09-10] MEDS ORDERED: Sodium Chloride 0.65% Nasal 44 ML BOT EA NARE PRN (12:29)
[2021-09-10] MEDS: HYDROcodone/Acetaminophen 5/325 mg Tablet PO PRN ×2 (13:56→21:57)
[2021-09-10] MEDS: Atorvastatin Calcium 20 MG TAB PO SCH (20:15)
[2021-09-11 05:45] LABS: Mean Corpuscular HGB CONC 30.3 g/dL (32.0-36.0); Mean Corpuscular Hemoglobin 27.1 pg (27.0-31.0); Mean Corpuscular Volume 89.6 fL (78.0-98.0); Mean Platelet Volume 6.6 fL (7.4-10.4); Platelet Count 283 thou/uL (130-400); Red Blood Cell (RBC) Count 3.31 mill/uL (4.70-6.10); White Blood Cell (WBC) Count 1.5 thou/uL (4.8-10.8)
[2021-09-11 06:03] LABS: Anion Gap 12 mmol/L (10-20); BUN (Urea Nitrogen) 20 mg/dL (8.4-25.7); Calc. Creatinine Clearance 112 mL/min (70-130); Calcium 8.2 mg/dL (7.8-10.44); Carbon Dioxide 36 mmol/L (23-31); Chloride 93 mmol/L (98-107); Glucose 89 mg/dL (83-110); Magnesium 1.7 mg/dL (1.6-2.6); Sodium 137 mmol/L (136-145)
[2021-09-11 06:10] LABS: ALT (SGPT) 29 U/L (8-55); AST (SGOT) 34 U/L (5-34); Alkaline Phosphatase 277 U/L (40-110); Bilirubin, Direct 0.4 mg/dL (0.1-0.3); Bilirubin, Total 0.8 mg/dL (0.2-1.2); Protein, Total 4.3 g/dL (5.8-8.1)
[2021-09-11] MEDS: Furosemide 40 MG/4 ML VIAL SLOW IVP SCH ×2 (06:22→14:39)
[2021-09-11 06:23] LABS: Band 30 % (5-11); Eosinophils 2 % (0-10); Lymphocytes 8 % (21-51); MDiff Complete? YES; Metamyelocyte 11 % (0-0); Monocytes 14 % (0-10); Myelocyte 13 % (0-0); Neutrophil 22 % (42-75)
[2021-09-11] MEDS: Cholecalciferol 1,000 UNITS (25 MCG) TAB PO SCH (08:57)
[2021-09-11] MEDS: DULoxetine 60 MG CAP PO SCH (08:57)
[2021-09-11] MEDS: Aspirin 81 mg Enteric Coated Tablet PO SCH (08:57)
[2021-09-11] MEDS: Carvedilol 3.125 MG TAB PO SCH ×2 (08:57→16:54)
[2021-09-11] MEDS: Enoxaparin Sodium 100 MG/ML SYRINGE SC SCH ×2 (08:58→19:41)
[2021-09-11] MEDS: Folic Acid 1 MG TAB PO SCH (08:58)
[2021-09-11] MEDS: Ezetimibe 10 MG TAB PO SCH (08:58)
[2021-09-11] MEDS: HYDROcodone/Acetaminophen 5/325 mg Tablet PO PRN ×3 (10:22→19:41)
[2021-09-11] MEDS: Atorvastatin Calcium 20 MG TAB PO SCH (19:41)
[2021-09-12] MEDS: HYDROcodone/Acetaminophen 5/325 mg Tablet PO PRN ×4 (03:58→20:37)
[2021-09-12 05:45] LABS: BUN (Urea Nitrogen) 17 mg/dL (8.4-25.7); Calc. Creatinine Clearance 116 mL/min (70-130); Calcium 8.1 mg/dL (7.8-10.44); Glucose 99 mg/dL (83-110)
[2021-09-12 05:54] LABS: Anion Gap 16 mmol/L (10-20); Carbon Dioxide 34 mmol/L (23-31); Chloride 92 mmol/L (98-107); Sodium 138 mmol/L (136-145)
[2021-09-12] MEDS: Furosemide 40 MG/4 ML VIAL SLOW IVP SCH ×2 (06:30→14:22)
[2021-09-12 07:05] LABS: Band 10 % (5-11); Eosinophils 2 % (0-10); Hemoglobin 9.3 g/dL (14.0-18.0); Lymphocytes 18 % (21-51); MDiff Complete? YES; Mean Corpuscular HGB CONC 31.7 g/dL (32.0-36.0); Mean Corpuscular Hemoglobin 28.1 pg (27.0-31.0); Mean Corpuscular Volume 88.5 fL (78.0-98.0); Mean Platelet Volume 6.8 fL (7.4-10.4); Metamyelocyte 8 % (0-0); Monocytes 6 % (0-10); Myelocyte 12 % (0-0); Neutrophil 44 % (42-75); Platelet Count 279 thou/uL (130-400); RBC Distribution Width 16.9 % (11.5-14.5); Red Blood Cell (RBC) Count 3.31 mill/uL (4.70-6.10); White Blood Cell (WBC) Count 1.7 thou/uL (4.8-10.8)
[2021-09-12] MEDS: Cholecalciferol 1,000 UNITS (25 MCG) TAB PO SCH (08:19)
[2021-09-12] MEDS: DULoxetine 60 MG CAP PO SCH (08:19)
[2021-09-12] MEDS: Carvedilol 3.125 MG TAB PO SCH ×2 (08:19→17:03)
[2021-09-12] MEDS: Folic Acid 1 MG TAB PO SCH (08:19)
[2021-09-12] MEDS: Aspirin 81 mg Enteric Coated Tablet PO SCH (08:20)
[2021-09-12] MEDS: Enoxaparin Sodium 100 MG/ML SYRINGE SC SCH (08:20)
[2021-09-12] MEDS: Ezetimibe 10 MG TAB PO SCH (08:20)
[2021-09-12] MEDS ORDERED: Mag-Al 1200 mg/1200 mg/30 ML UDCUP PER TUBE SCH (09:45)
[2021-09-12] MEDS ORDERED: Mag-Al 1200 mg/1200 mg/30 ML UDCUP PO PRN (10:21)
[2021-09-12] MEDS: Atorvastatin Calcium 20 MG TAB PO SCH (20:37)
[2021-09-12] MEDS: Apixaban 5 MG TAB PO SCH (20:37)
[2021-09-13] MEDS: Furosemide 40 MG/4 ML VIAL SLOW IVP SCH ×2 (06:19→13:58)
[2021-09-13] MEDS: Cholecalciferol 1,000 UNITS (25 MCG) TAB PO SCH (10:05)
[2021-09-13] MEDS: Carvedilol 3.125 MG TAB PO SCH ×2 (10:05→17:54)
[2021-09-13] MEDS: Apixaban 5 MG TAB PO SCH ×2 (10:05→22:42)
[2021-09-13] MEDS: Aspirin 81 mg Enteric Coated Tablet PO SCH (10:05)
[2021-09-13] MEDS: Folic Acid 1 MG TAB PO SCH (10:06)
[2021-09-13] MEDS: Ezetimibe 10 MG TAB PO SCH (10:06)
[2021-09-13] MEDS: DULoxetine 60 MG CAP PO SCH (10:06)
[2021-09-13] MEDS: ALPRAZolam 0.5 MG TAB PO PRN (13:58)
[2021-09-13] MEDS: Atorvastatin Calcium 20 MG TAB PO SCH (22:42)
[2021-09-14 06:02] LABS: Anion Gap 14 mmol/L (10-20); BUN (Urea Nitrogen) 13 mg/dL (8.4-25.7); Calc. Creatinine Clearance 117 mL/min (70-130); Calcium 8.3 mg/dL (7.8-10.44); Carbon Dioxide 32 mmol/L (23-31); Chloride 91 mmol/L (98-107); Glucose 86 mg/dL (83-110); Potassium 3.2 mmol/L (3.5-5.1); Sodium 134 mmol/L (136-145)
[2021-09-14] MEDS: Furosemide 40 MG TAB PO SCH ×2 (06:16→15:25)
[2021-09-14 06:44] LABS: Hemoglobin 10.4 g/dL (14.0-18.0); Mean Corpuscular HGB CONC 30.5 g/dL (32.0-36.0); Mean Corpuscular Hemoglobin 27.1 pg (27.0-31.0); Mean Corpuscular Volume 88.8 fL (78.0-98.0); Platelet Count 348 thou/uL (130-400); RBC Distribution Width 17.8 % (11.5-14.5); Red Blood Cell (RBC) Count 3.82 mill/uL (4.70-6.10); White Blood Cell (WBC) Count 4.2 thou/uL (4.8-10.8)
[2021-09-14 08:11] LABS: Band 20 % (5-11); Dohle Bodies SLIGHT; Lymphocytes 7 % (21-51); MDiff Complete? YES; Metamyelocyte 5 % (0-0); Monocytes 15 % (0-10); Myelocyte 3 % (0-0); Neutrophil 50 % (42-75); Platelet Morphology Comment Appears Adequate; Polychromasia SLIGHT = 2-3 cells (100X) (0-2/hpf); Vacuoles MODERATE
[2021-09-14] MEDS: Carvedilol 3.125 MG TAB PO SCH ×2 (09:46→18:40)
[2021-09-14] MEDS: Ezetimibe 10 MG TAB PO SCH (09:46)
[2021-09-14] MEDS: DULoxetine 60 MG CAP PO SCH (09:47)
[2021-09-14] MEDS: Cholecalciferol 1,000 UNITS (25 MCG) TAB PO SCH (09:47)
[2021-09-14] MEDS: Aspirin 81 mg Enteric Coated Tablet PO SCH (09:47)
[2021-09-14] MEDS: Folic Acid 1 MG TAB PO SCH (09:47)
[2021-09-14] MEDS: Apixaban 5 MG TAB PO SCH ×2 (09:47→20:20)
[2021-09-14] MEDS ORDERED: Electrolyte Replacement Protocol 1 EACH FS PRN (14:15)
[2021-09-14] MEDS: HYDROcodone/Acetaminophen 5/325 mg Tablet PO PRN ×2 (15:24→20:19)
[2021-09-14] MEDS ORDERED: Potassium Chloride 20 MEQ TAB PO SCH (17:00)
[2021-09-14] MEDS: Atorvastatin Calcium 20 MG TAB PO SCH (20:20)
[2021-09-15 05:38] LABS: ALT (SGPT) 40 U/L (8-55); AST (SGOT) 57 U/L (5-34); Albumin 2.2 g/dL (3.4-4.8); Alkaline Phosphatase 286 U/L (40-110); Anion Gap 14 mmol/L (10-20); BUN (Urea Nitrogen) 12 mg/dL (8.4-25.7); Bilirubin, Total 0.5 mg/dL (0.2-1.2); Calc. Creatinine Clearance 121 mL/min (70-130); Calcium 8.1 mg/dL (7.8-10.44); Carbon Dioxide 34 mmol/L (23-31); Chloride 89 mmol/L (98-107); Globulin 2.6 g/dL (2.4-3.5); Glucose 77 mg/dL (83-110); Magnesium 1.7 mg/dL (1.6-2.6); Phosphorus 2.2 mg/dL (2.3-4.7); Potassium 3.2 mmol/L (3.5-5.1); Protein, Total 4.8 g/dL (5.8-8.1); Sodium 134 mmol/L (136-145)
[2021-09-15 06:07] LABS: Hemoglobin 9.7 g/dL (14.0-18.0); Mean Corpuscular HGB CONC 30.2 g/dL (32.0-36.0); Mean Corpuscular Hemoglobin 26.9 pg (27.0-31.0); Mean Corpuscular Volume 89.1 fL (78.0-98.0); Mean Platelet Volume 6.6 fL (7.4-10.4); Platelet Count 446 thou/uL (130-400); RBC Distribution Width 17.6 % (11.5-14.5); Red Blood Cell (RBC) Count 3.62 mill/uL (4.70-6.10)
[2021-09-15 06:23] LABS: Band 21 % (5-11); Eosinophils 2 % (0-10); Lymphocytes 7 % (21-51); MDiff Complete? YES; Metamyelocyte 7 % (0-0); Monocytes 2 % (0-10); Myelocyte 3 % (0-0); Neutrophil 57 % (42-75); Reactive Lymphocytes 1 % (0-10); Toxic Granulation SLIGHT
[2021-09-15] MEDS ORDERED: Magnesium 2 GM/50 ML(in water) 2 GM in Premix Bag 1 BAG IVPB SCH (07:00)
[2021-09-15] MEDS ORDERED: Potassium Chloride 20 MEQ TAB PO SCH (07:00)
[2021-09-15] MEDS: Carvedilol 3.125 MG TAB PO SCH ×2 (08:34→17:07)
[2021-09-15] MEDS: Aspirin 81 mg Enteric Coated Tablet PO SCH (08:34)
[2021-09-15] MEDS: DULoxetine 60 MG CAP PO SCH (08:34)
[2021-09-15] MEDS: Folic Acid 1 MG TAB PO SCH (08:34)
[2021-09-15] MEDS: Cholecalciferol 1,000 UNITS (25 MCG) TAB PO SCH (08:34)
[2021-09-15] MEDS: Apixaban 5 MG TAB PO SCH ×2 (08:34→20:59)
[2021-09-15] MEDS: Furosemide 40 MG TAB PO SCH (08:34)
[2021-09-15] MEDS: Ezetimibe 10 MG TAB PO SCH (08:34)
[2021-09-15] MEDS: K-Phos Neutral 250 MG TAB PER TUBE SCH ×3 (11:59→20:58)
[2021-09-15] MEDS: Atorvastatin Calcium 20 MG TAB PO SCH (20:59)
[2021-09-15] MEDS: Multivit, Therapeutic 1 TAB PER TUBE SCH (20:59)
[2021-09-16 05:26] LABS: Anisocytosis SLIGHT = 6-15 cells (100X) (0-5/hpf); Band 18 % (5-11); Hemoglobin 8.7 g/dL (14.0-18.0); Hypochromia SLIGHT = 6-15 cells (100X) (0-5/hpf); Lymphocytes 7 % (21-51); MDiff Complete? YES; Mean Corpuscular HGB CONC 30.8 g/dL (32.0-36.0); Mean Corpuscular Hemoglobin 27.3 pg (27.0-31.0); Mean Corpuscular Volume 88.6 fL (78.0-98.0); Mean Platelet Volume 6.3 fL (7.4-10.4); Metamyelocyte 5 % (0-0); Monocytes 5 % (0-10); Myelocyte 4 % (0-0); Neutrophil 60 % (42-75); Platelet Count 352 thou/uL (130-400); Platelet Morphology Comment Appears Adequate; Polychromasia SLIGHT = 2-3 cells (100X) (0-2/hpf); RBC Distribution Width 17.6 % (11.5-14.5); Reactive Lymphocytes 1 % (0-10); Red Blood Cell (RBC) Count 3.18 mill/uL (4.70-6.10); White Blood Cell (WBC) Count 5.8 thou/uL (4.8-10.8)
[2021-09-16 05:29] LABS: Anion Gap 10 mmol/L (10-20); BUN (Urea Nitrogen) 9 mg/dL (8.4-25.7); Calc. Creatinine Clearance 129 mL/min (70-130); Calcium 7.8 mg/dL (7.8-10.44); Carbon Dioxide 36 mmol/L (23-31); Chloride 90 mmol/L (98-107); Glucose 88 mg/dL (83-110); Phosphorus 3.1 mg/dL (2.3-4.7); Potassium 3.1 mmol/L (3.5-5.1); Sodium 133 mmol/L (136-145)
[2021-09-16] MEDS: Furosemide 40 MG TAB PO SCH (06:38)
[2021-09-16] MEDS ORDERED: Potassium Chloride 20 MEQ TAB PO SCH ×2 (07:00→18:30)
[2021-09-16] MEDS: DULoxetine 60 MG CAP PO SCH (09:08)
[2021-09-16] MEDS: Folic Acid 1 MG TAB PO SCH (09:08)
[2021-09-16] MEDS: Carvedilol 3.125 MG TAB PO SCH ×2 (09:08→17:43)
[2021-09-16] MEDS: Cholecalciferol 1,000 UNITS (25 MCG) TAB PO SCH (09:09)
[2021-09-16] MEDS: Apixaban 5 MG TAB PO SCH ×2 (09:09→20:22)
[2021-09-16] MEDS: Ezetimibe 10 MG TAB PO SCH (09:09)
[2021-09-16] MEDS: Aspirin 81 mg Enteric Coated Tablet PO SCH (09:09)
[2021-09-16 09:38] VITALS: BMI 22.6
[2021-09-16] MEDS: HYDROcodone/Acetaminophen 5/325 mg Tablet PO PRN ×2 (17:48→22:17)
[2021-09-16] MEDS: Atorvastatin Calcium 20 MG TAB PO SCH (20:22)
[2021-09-16] MEDS: Multivit, Therapeutic 1 TAB PER TUBE SCH (20:22)
[2021-09-16] MEDS: ALPRAZolam 0.5 MG TAB PO PRN (23:29)
[2021-09-17 05:16] LABS: Band 24 % (5-11); Hypochromia SLIGHT = 6-15 cells (100X) (0-5/hpf); Lymphocytes 9 % (21-51); MDiff Complete? YES; Mean Corpuscular HGB CONC 31.3 g/dL (32.0-36.0); Mean Corpuscular Hemoglobin 27.9 pg (27.0-31.0); Mean Corpuscular Volume 89.1 fL (78.0-98.0); Mean Platelet Volume 6.2 fL (7.4-10.4); Monocytes 12 % (0-10); Neutrophil 55 % (42-75); Platelet Count 489 thou/uL (130-400); Platelet Morphology Comment Appears Increased; RBC Distribution Width 17.6 % (11.5-14.5); Red Blood Cell (RBC) Count 3.59 mill/uL (4.70-6.10); White Blood Cell (WBC) Count 8.8 thou/uL (4.8-10.8)
[2021-09-17 05:21] LABS: Anion Gap 9 mmol/L (10-20); BUN (Urea Nitrogen) 11 mg/dL (8.4-25.7); Calc. Creatinine Clearance 131 mL/min (70-130); Calcium 8.2 mg/dL (7.8-10.44); Carbon Dioxide 37 mmol/L (23-31); Chloride 91 mmol/L (98-107); Glucose 86 mg/dL (83-110); Magnesium 1.9 mg/dL (1.6-2.6); Phosphorus 2.9 mg/dL (2.3-4.7); Potassium 3.8 mmol/L (3.5-5.1); Sodium 133 mmol/L (136-145)
[2021-09-17] MEDS ORDERED: Magnesium Oxide 400 MG TAB PER TUBE SCH (07:00)
[2021-09-17] MEDS ORDERED: Magnesium 2 GM/50 ML(in water) 2 GM in Premix Bag 1 BAG IVPB SCH (07:00)
[2021-09-17 07:33] VITALS: BP 133/76; TEMP 100.2
[2021-09-17] MEDS ORDERED: Potassium Chloride 20 MEQ TAB PO SCH (08:00)
[2021-09-17] MEDS: Ezetimibe 10 MG TAB PO SCH (09:35)
[2021-09-17] MEDS: Apixaban 5 MG TAB PO SCH (09:35)
[2021-09-17] MEDS: Aspirin 81 mg Enteric Coated Tablet PO SCH (09:35)
[2021-09-17] MEDS: Cholecalciferol 1,000 UNITS (25 MCG) TAB PO SCH (09:35)
[2021-09-17] MEDS: DULoxetine 60 MG CAP PO SCH (09:35)
[2021-09-17] MEDS: Folic Acid 1 MG TAB PO SCH (09:35)
[2021-09-17] MEDS: Carvedilol 3.125 MG TAB PO SCH (09:36)
[2021-09-17] MEDS: ALPRAZolam 0.5 MG TAB PO PRN (09:46)
[2021-09-17] MEDS ORDERED: Iopamidol-370 76% 500 ML 1 ML ONE (10:14)
[2021-09-17] MEDS ORDERED: Sodium Chloride 0.9% 500 ML IV SCH (11:30)
[2021-09-17] MEDS: Furosemide 40 MG TAB PO SCH (12:06)
[2021-09-17] MEDS ORDERED: Potassium Chloride 10 MEQ TAB PO SCH (17:00)
== END 2021-09-17 16:42 | DRG 70 ==
LOC: MSONC 11:16
PROVIDERS: ADMIT Family Medicine; ATTEND Internal Medicine
DX: G93.41 Metabolic encephalopathy (principal); J96.01 Acute respiratory failure with hypoxia; D61.810 Antineoplastic chemotherapy induced pancytopenia; J90 Pleural effusion, not elsewhere classified; C83.10 Mantle cell lymphoma, unspecified site; E87.1 Hypo-osmolality and hyponatremia; E44.0 Moderate protein-calorie malnutrition; Z68.1 Body mass index [BMI] 19.9 or less, adult; D72.819 Decreased white blood cell count, unspecified; E87.8 Other disorders of electrolyte and fluid balance, not elsewhere classified; E03.9 Hypothyroidism, unspecified; F41.9 Anxiety disorder, unspecified; F32.A Depression, unspecified; E86.0 Dehydration; D63.8 Anemia in other chronic diseases classified elsewhere; R13.10 Dysphagia, unspecified; T45.1X5A Adverse effect of antineoplastic and immunosuppressive drugs, initial encounter; E78.5 Hyperlipidemia, unspecified; I10 Essential (primary) hypertension; I48.0 Paroxysmal atrial fibrillation; E83.42 Hypomagnesemia; E83.39 Other disorders of phosphorus metabolism; E87.6 Hypokalemia; Z88.8 Allergy status to other drugs, medicaments and biological substances; Z86.73 Personal history of transient ischemic attack (TIA), and cerebral infarction without residual deficits; Z79.82 Long term (current) use of aspirin
CPT/HCPCS: 36415; 70491; 80048; 80053; 80076; 83735; 84100; 85025; J1650; J1940; J7050; Q9967

== ENCOUNTER 2021-09-21 10:20 | Inpatient (IN) | payer OTHER ==
[~2021-09-21 10:20] MED LIST: Heparin 1,000 UNITS/ML VIAL ONE
[2021-09-21] MEDS ORDERED: Cefepime 2 GM VIAL ONE (11:14)
[2021-09-21 12:14] LABS: ALT (SGPT) 53 U/L (8-55); AST (SGOT) 48 U/L (5-34); Albumin 2.4 g/dL (3.4-4.8); Alkaline Phosphatase 307 U/L (40-110); Anion Gap 13 mmol/L (10-20); BUN (Urea Nitrogen) 14 mg/dL (8.4-25.7); Bilirubin, Total 0.9 mg/dL (0.2-1.2); Calc. Creatinine Clearance 0 mL/min (70-130); Calcium 7.6 mg/dL (7.8-10.44); Carbon Dioxide 30 mmol/L (23-31); Chloride 96 mmol/L (98-107); Globulin 2.3 g/dL (2.4-3.5); Glucose 91 mg/dL (83-110); Potassium 4.5 mmol/L (3.5-5.1); Protein, Total 4.7 g/dL (5.8-8.1); Sodium 134 mmol/L (136-145)
[2021-09-21 12:23] LABS: Hemoglobin 9.5 g/dL (14.0-18.0); Mean Corpuscular HGB CONC 31.2 g/dL (32.0-36.0); Mean Corpuscular Hemoglobin 27.9 pg (27.0-31.0); Mean Corpuscular Volume 89.6 fL (78.0-98.0); Mean Platelet Volume 6.2 fL (7.4-10.4); Platelet Count 573 thou/uL (130-400); RBC Distribution Width 17.9 % (11.5-14.5); White Blood Cell (WBC) Count 12.5 thou/uL (4.8-10.8)
[2021-09-21 12:38] LABS: Bacteria/HPF 1+ HPF (None Seen); Bilirubin Negative (Negative); Blood, Urine 1+ (Negative); Clarity Clear (Clear); Glucose, Urine (Dipstick) Normal (Negative); Ketone, Urine Negative (Negative); Leukocyte 250 Leu/uL (Negative); Nitrite 1+ (Negative); Protein, Urine (Dipstick) 10 mg/dL (Neg-Trace); Specific Gravity, Urine 1.013 (1.002-1.036); Squamous Epithelial None Seen HPF (0-3); Urobilinogen Normal mg/dL (Less than 2); WBC/HPF Greater than 50 HPF (0-3)
[2021-09-21 12:40] LABS: Anisocytosis SLIGHT = 6-15 cells (100X) (0-5/hpf); Band 20 % (5-11); MDiff Complete? YES; Metamyelocyte 12 % (0-0); Monocytes 7 % (0-10); Myelocyte 4 % (0-0); Neutrophil 57 % (42-75); Ovalocytes SLIGHT = 2-5 cells (100X) (0-1/hpf); Platelet Morphology Comment Appears Increased; Polychromasia SLIGHT = 2-3 cells (100X) (0-2/hpf); Toxic Granulation SLIGHT; Vacuoles SLIGHT
[2021-09-21] MEDS ORDERED: Bisacodyl 10 MG SUPP PR PRN (13:30)
[2021-09-21] MEDS ORDERED: Sodium Chloride 0.9% 1,000 ML IV SCH (13:30)
[2021-09-21] MEDS ORDERED: Ondansetron PF 4 MG/2 ML Vial IVP PRN (13:30)
[2021-09-21] MEDS ORDERED: Acetaminophen 650 MG Suppository PR PRN (13:30)
[2021-09-21] MEDS ORDERED: Vancomycin 1.5 GRAM/300 ML BAG 1.5 GM in Premix Bag 1 BAG IVPB SCH (14:00)
[2021-09-21 14:50] LABS: Lactic Acid 1.6 mmol/L (0.5-2.2)
[2021-09-21] MEDS: Sodium Chloride 0.9% 1,000 ML IV SCH (17:11)
[2021-09-21] MEDS: Carvedilol 3.125 MG TAB PO SCH (17:12)
[2021-09-21] MEDS: Atorvastatin Calcium 20 MG TAB PO SCH (21:13)
[2021-09-21] MEDS: Famotidine/PF 20 mg/2ml Vial SLOW IVP SCH (21:13)
[2021-09-21] MEDS: Oxybutynin 5 MG TAB PO SCH (21:13)
[2021-09-21] MEDS: Morphine 4 MG/ML VIAL SLOW IVP PRN (21:43)
[2021-09-21] MEDS: Cefepime 1 GM in Sodium Chloride 0.9% 100 ML IVPB SCH (21:54)
[2021-09-21] MEDS: Melatonin 3 MG TAB PO PRN (23:43)
[2021-09-22] MEDS: Sodium Chloride 0.9% 1,000 ML IV SCH ×3 (03:42→20:33)
[2021-09-22 04:31] LABS: Anion Gap 11 mmol/L (10-20); BUN (Urea Nitrogen) 14 mg/dL (8.4-25.7); Calc. Creatinine Clearance 115 mL/min (70-130); Calcium 7.8 mg/dL (7.8-10.44); Carbon Dioxide 28 mmol/L (23-31); Chloride 99 mmol/L (98-107); Glucose 87 mg/dL (83-110); Sodium 134 mmol/L (136-145)
[2021-09-22 04:53] LABS: Anisocytosis SLIGHT = 6-15 cells (100X) (0-5/hpf); Band 13 % (5-11); Hemoglobin 9.1 g/dL (14.0-18.0); Hypochromia SLIGHT = 6-15 cells (100X) (0-5/hpf); Lymphocytes 4 % (21-51); MDiff Complete? YES; Mean Corpuscular Hemoglobin 26.7 pg (27.0-31.0); Mean Corpuscular Volume 88.9 fL (78.0-98.0); Mean Platelet Volume 6.1 fL (7.4-10.4); Metamyelocyte 9 % (0-0); Monocytes 5 % (0-10); Myelocyte 4 % (0-0); Neutrophil 65 % (42-75); Platelet Count 586 thou/uL (130-400); Platelet Morphology Comment Appears Increased; Polychromasia SLIGHT = 2-3 cells (100X) (0-2/hpf); RBC Distribution Width 17.9 % (11.5-14.5); Red Blood Cell (RBC) Count 3.41 mill/uL (4.70-6.10); Toxic Granulation SLIGHT; White Blood Cell (WBC) Count 14.8 thou/uL (4.8-10.8)
[2021-09-22 05:30] LABS: Anion Gap 13 mmol/L (10-20); BUN (Urea Nitrogen) 13 mg/dL (8.4-25.7); Calc. Creatinine Clearance 115 mL/min (70-130); Calcium 7.9 mg/dL (7.8-10.44); Carbon Dioxide 24 mmol/L (23-31); Chloride 100 mmol/L (98-107); Glucose 84 mg/dL (83-110); Magnesium 1.9 mg/dL (1.6-2.6); Potassium 4.1 mmol/L (3.5-5.1); Sodium 133 mmol/L (136-145)
[2021-09-22] MEDS: Levothyroxine Sodium 88 MCG TAB PO SCH (06:05)
[2021-09-22] MEDS: Famotidine/PF 20 mg/2ml Vial SLOW IVP SCH ×2 (08:01→20:16)
[2021-09-22] MEDS: Carvedilol 3.125 MG TAB PO SCH ×2 (08:01→16:45)
[2021-09-22] MEDS: Ezetimibe 10 MG TAB PO SCH (08:01)
[2021-09-22] MEDS: Cholecalciferol 1,000 UNITS (25 MCG) TAB PO SCH (08:01)
[2021-09-22] MEDS: Aspirin Chewable 81 MG TAB PO SCH (08:01)
[2021-09-22] MEDS: Cefepime 1 GM in Sodium Chloride 0.9% 100 ML IVPB SCH ×2 (11:18→22:37)
[2021-09-22] MEDS: Nystatin Cream 15 GM TUBE TOP SCH ×2 (14:48→20:17)
[2021-09-22] MEDS: Lorazepam 2 MG/ML VIAL SLOW IVP PRN ×2 (16:55→22:33)
[2021-09-22] MEDS ORDERED: Metoprolol Tartrate 5 MG/5 ML VIAL IVP SCH (19:30)
[2021-09-22] MEDS: Oxybutynin 5 MG TAB PO SCH (20:17)
[2021-09-22] MEDS: Atorvastatin Calcium 20 MG TAB PO SCH (20:17)
[2021-09-22] MEDS: Morphine 4 MG/ML VIAL SLOW IVP PRN (20:35)
[2021-09-23 04:53] LABS: Anion Gap 13 mmol/L (10-20); BUN (Urea Nitrogen) 15 mg/dL (8.4-25.7); Calc. Creatinine Clearance 115 mL/min (70-130); Calcium 7.9 mg/dL (7.8-10.44); Carbon Dioxide 26 mmol/L (23-31); Chloride 103 mmol/L (98-107); Glucose 84 mg/dL (83-110); Sodium 138 mmol/L (136-145)
[2021-09-23 05:28] LABS: Anisocytosis SLIGHT = 6-15 cells (100X) (0-5/hpf); Band 16 % (5-11); Elliptocytes SLIGHT = 2-5 cells (100X) (0-1/hpf); Hemoglobin 8.6 g/dL (14.0-18.0); Lymphocytes 6 % (21-51); MDiff Complete? YES; Mean Corpuscular HGB CONC 29.8 g/dL (32.0-36.0); Mean Corpuscular Hemoglobin 26.7 pg (27.0-31.0); Mean Corpuscular Volume 89.4 fL (78.0-98.0); Mean Platelet Volume 6.1 fL (7.4-10.4); Metamyelocyte 5 % (0-0); Monocytes 1 % (0-10); Myelocyte 4 % (0-0); Neutrophil 68 % (42-75); Platelet Count 537 thou/uL (130-400); RBC Distribution Width 18.1 % (11.5-14.5); Red Blood Cell (RBC) Count 3.22 mill/uL (4.70-6.10); Toxic Granulation SLIGHT; White Blood Cell (WBC) Count 15.9 thou/uL (4.8-10.8)
[2021-09-23] MEDS: Levothyroxine Sodium 88 MCG TAB PO SCH (06:05)
[2021-09-23] MEDS: Lorazepam 2 MG/ML VIAL SLOW IVP PRN (09:40)
[2021-09-23] MEDS: Nystatin Cream 15 GM TUBE TOP SCH ×3 (09:43→21:51)
[2021-09-23] MEDS: Sodium Chloride 0.9% 1,000 ML IV SCH (09:43)
[2021-09-23 09:58] LABS: SARS-CoV-2 NAA Rapid Test Not Detected (NotDetected)
[2021-09-23] MEDS ORDERED: Ketamine 50 MG/ML (10ML VIAL) ONE (11:00)
[2021-09-23] MEDS ORDERED: Midazolam HCl 2 mg/2 ml Vial ONE (11:00)
[2021-09-23] MEDS ORDERED: Ondansetron PF 4 MG/2 ML Vial ONE (11:08)
[2021-09-23] MEDS ORDERED: Succinylcholine 200 MG/10 ml SYRINGE FS ONE (11:08)
[2021-09-23] MEDS ORDERED: Morphine Sulfate 2 MG/ML SYRINGE SLOW IVP PRN (12:19)
[2021-09-23] MEDS ORDERED: Ondansetron HCl/PF 4 MG/2 ML Vial IVP PRN (12:19)
[2021-09-23] MEDS ORDERED: Pantoprazole 40 MG VIAL IVP SCH (13:00)
[2021-09-23] MEDS: Aspirin Chewable 81 MG TAB PO SCH (15:49)
[2021-09-23] MEDS: Carvedilol 3.125 MG TAB PO SCH ×2 (15:49→16:27)
[2021-09-23] MEDS: Cholecalciferol 1,000 UNITS (25 MCG) TAB PO SCH (15:50)
[2021-09-23] MEDS: Ezetimibe 10 MG TAB PO SCH (15:50)
[2021-09-23] MEDS: Famotidine/PF 20 mg/2ml Vial SLOW IVP SCH ×2 (15:50→21:51)
[2021-09-23] MEDS: Cefepime 1 GM in Sodium Chloride 0.9% 100 ML IVPB SCH (15:51)
[2021-09-23] MEDS: Atorvastatin Calcium 20 MG TAB PO SCH (21:50)
[2021-09-23] MEDS: Oxybutynin 5 MG TAB PO SCH (21:51)
[2021-09-23] MEDS: Pantoprazole 40 MG VIAL IVP SCH (21:57)
[2021-09-23] MEDS: Melatonin 3 MG TAB PO PRN (22:19)
[2021-09-23] MEDS: Morphine 4 MG/ML VIAL SLOW IVP PRN (22:31)
[2021-09-23] MEDS: Cefepime 2 GM in Sodium Chloride 0.9% 100 ML IVPB SCH (23:56)
[2021-09-24 05:13] LABS: Anion Gap 12 mmol/L (10-20); BUN (Urea Nitrogen) 21 mg/dL (8.4-25.7); Band 20 % (5-11); Calc. Creatinine Clearance 98 mL/min (70-130); Carbon Dioxide 25 mmol/L (23-31); Chloride 108 mmol/L (98-107); Glucose 120 mg/dL (83-110); Hemoglobin 8.8 g/dL (14.0-18.0); MDiff Complete? YES; Magnesium 2.2 mg/dL (1.6-2.6); Mean Corpuscular HGB CONC 29.7 g/dL (32.0-36.0); Mean Corpuscular Hemoglobin 26.8 pg (27.0-31.0); Mean Corpuscular Volume 90.3 fL (78.0-98.0); Mean Platelet Volume 6.3 fL (7.4-10.4); Metamyelocyte 3 % (0-0); Monocytes 3 % (0-10); Myelocyte 4 % (0-0); Neutrophil 70 % (42-75); Platelet Count 483 thou/uL (130-400); Platelet Morphology Comment Appears Increased; Potassium 3.9 mmol/L (3.5-5.1); RBC Distribution Width 18.4 % (11.5-14.5); Red Blood Cell (RBC) Count 3.29 mill/uL (4.70-6.10); Sodium 141 mmol/L (136-145); Toxic Granulation SLIGHT; Uric Acid 5.5 mg/dL (3.5-7.2); White Blood Cell (WBC) Count 18.4 thou/uL (4.8-10.8)
[2021-09-24] MEDS: Levothyroxine Sodium 88 MCG TAB PO SCH (05:18)
[2021-09-24] MEDS: Lorazepam 2 MG/ML VIAL SLOW IVP PRN ×2 (09:05→15:52)
[2021-09-24] MEDS: Famotidine/PF 20 mg/2ml Vial SLOW IVP SCH (09:05)
[2021-09-24] MEDS: Cholecalciferol 1,000 UNITS (25 MCG) TAB PO SCH (09:06)
[2021-09-24] MEDS: Aspirin Chewable 81 MG TAB PO SCH (09:06)
[2021-09-24] MEDS: Ezetimibe 10 MG TAB PO SCH (09:06)
[2021-09-24] MEDS: Pantoprazole 40 MG VIAL IVP SCH ×2 (09:06→21:03)
[2021-09-24] MEDS: Nystatin Cream 15 GM TUBE TOP SCH ×3 (09:07→21:02)
[2021-09-24] MEDS: Carvedilol 3.125 MG TAB PO SCH (10:08)
[2021-09-24] MEDS: Cefepime 2 GM in Sodium Chloride 0.9% 100 ML IVPB SCH ×2 (13:16→22:53)
[2021-09-24] MEDS ORDERED: DULoxetine 30 MG CAP PO SCH (14:15)
[2021-09-24] MEDS ORDERED: Sodium Bicarbonate Tab 325 MG TAB PER TUBE PRN (17:30)
[2021-09-24] MEDS ORDERED: Pancrelipase DR 12,000 1 CAP FS PRN (17:30)
[2021-09-24] MEDS ORDERED: Melatonin 3 MG TAB PO PRN (18:51)
[2021-09-24] MEDS ORDERED: Electrolyte Replacement Protocol 1 EACH FS SCH (19:00)
[2021-09-24 19:19] LABS: Creatinine, Urine 91.86 mg/dL (63-166); Sodium, Urine Less than 20 mmol/L (Not Available); Urea Nitrogen, Random Urine 913 mg/dl
[2021-09-24] MEDS ORDERED: Apixaban 5 MG TAB PO SCH (21:00)
[2021-09-24] MEDS: Atorvastatin Calcium 20 MG TAB PO SCH (21:02)
[2021-09-24] MEDS: Melatonin 3 MG TAB PO PRN (21:02)
[2021-09-25] MEDS: Lorazepam 2 MG/ML VIAL SLOW IVP PRN ×3 (01:43→21:04)
[2021-09-25 05:26] LABS: Phosphorus 2.7 mg/dL (2.3-4.7)
[2021-09-25 05:33] LABS: Anion Gap 10 mmol/L (10-20); BUN (Urea Nitrogen) 26 mg/dL (8.4-25.7); Calc. Creatinine Clearance 99 mL/min (70-130); Carbon Dioxide 26 mmol/L (23-31); Chloride 110 mmol/L (98-107); Glucose 114 mg/dL (83-110); Magnesium 2.2 mg/dL (1.6-2.6); Sodium 142 mmol/L (136-145)
[2021-09-25 05:46] LABS: Hemoglobin 7.6 g/dL (14.0-18.0); Mean Corpuscular Hemoglobin 27.1 pg (27.0-31.0); Mean Corpuscular Volume 90.2 fL (78.0-98.0); Mean Platelet Volume 7.2 fL (7.4-10.4); Platelet Count 343 thou/uL (130-400); RBC Distribution Width 18.1 % (11.5-14.5); Red Blood Cell (RBC) Count 2.82 mill/uL (4.70-6.10); White Blood Cell (WBC) Count 14.4 thou/uL (4.8-10.8)
[2021-09-25] MEDS: Levothyroxine Sodium 88 MCG TAB PO SCH (06:43)
[2021-09-25] MEDS ORDERED: DULoxetine 60 MG CAP PO SCH (09:00)
[2021-09-25] MEDS ORDERED: Apixaban 5 MG TAB PO SCH (09:00)
[2021-09-25 09:20] LABS: Band 35 % (5-11); Elliptocytes SLIGHT = 2-5 cells (100X) (0-1/hpf); Helmet Cells SLIGHT = 2-5 cells (100X) (0-1/hpf); Hypochromia SLIGHT = 6-15 cells (100X) (0-5/hpf); MDiff Complete? YES; Metamyelocyte 3 % (0-0); Monocytes 4 % (0-10); Myelocyte 1 % (0-0); Neutrophil 56 % (42-75); Platelet Morphology Comment Appears Adequate; Polychromasia SLIGHT = 2-3 cells (100X) (0-2/hpf); Reactive Lymphocytes 1 % (0-10); Tear Drops SLIGHT = 2-5 cells (100X) (0-1/hpf); Toxic Granulation SLIGHT; Vacuoles SLIGHT
[2021-09-25] MEDS: Ezetimibe 10 MG TAB PO SCH (10:05)
[2021-09-25] MEDS: Cholecalciferol 1,000 UNITS (25 MCG) TAB PO SCH (10:05)
[2021-09-25] MEDS: Aspirin Chewable 81 MG TAB PO SCH (10:05)
[2021-09-25] MEDS: Folic Acid 1 MG TAB PO SCH (10:05)
[2021-09-25] MEDS: Metoprolol Tartrate 25 MG TAB PER TUBE SCH ×2 (10:05→21:08)
[2021-09-25] MEDS: DULoxetine 30 MG CAP PO SCH (10:05)
[2021-09-25] MEDS: Nystatin Cream 15 GM TUBE TOP SCH ×3 (10:06→21:09)
[2021-09-25] MEDS: Pantoprazole 40 MG VIAL IVP SCH ×2 (10:06→21:05)
[2021-09-25] MEDS: Cefepime 2 GM in Sodium Chloride 0.9% 100 ML IVPB SCH (11:13)
[2021-09-25] MEDS: Morphine 4 MG/ML VIAL SLOW IVP PRN ×2 (12:00→15:43)
[2021-09-25] MEDS ORDERED: Meropenem 1 GM in Sodium Chloride 0.9% 100 ML IVPB SCH (17:00)
[2021-09-25] MEDS: Atorvastatin Calcium 20 MG TAB PO SCH (21:08)
[2021-09-26] MEDS: Morphine 4 MG/ML VIAL SLOW IVP PRN ×4 (01:40→20:21)
[2021-09-26] MEDS: Meropenem 1 GM in Sodium Chloride 0.9% 100 ML IVPB SCH ×3 (01:44→18:58)
[2021-09-26 04:47] LABS: Hemoglobin 7.6 g/dL (14.0-18.0); Mean Corpuscular HGB CONC 31.3 g/dL (32.0-36.0); Mean Corpuscular Hemoglobin 28.2 pg (27.0-31.0); Mean Corpuscular Volume 90.3 fL (78.0-98.0); Mean Platelet Volume 6.8 fL (7.4-10.4); Platelet Count 281 thou/uL (130-400); RBC Distribution Width 17.9 % (11.5-14.5); Red Blood Cell (RBC) Count 2.69 mill/uL (4.70-6.10); White Blood Cell (WBC) Count 10.9 thou/uL (4.8-10.8)
[2021-09-26 04:52] LABS: Reticulocyte Count 1.9 % (0.5-1.5)
[2021-09-26 05:09] LABS: ALT (SGPT) 67 U/L (8-55); AST (SGOT) 88 U/L (5-34); Albumin 1.9 g/dL (3.4-4.8); Alkaline Phosphatase 343 U/L (40-110); Anion Gap 12 mmol/L (10-20); BUN (Urea Nitrogen) 18 mg/dL (8.4-25.7); Bilirubin, Total 0.5 mg/dL (0.2-1.2); Calc. Creatinine Clearance 108 mL/min (70-130); Calcium 7.8 mg/dL (7.8-10.44); Carbon Dioxide 27 mmol/L (23-31); Chloride 107 mmol/L (98-107); Globulin 2.4 g/dL (2.4-3.5); Glucose 132 mg/dL (83-110); Magnesium 1.9 mg/dL (1.6-2.6); Potassium 3.7 mmol/L (3.5-5.1); Protein, Total 4.3 g/dL (5.8-8.1); Sodium 142 mmol/L (136-145)
[2021-09-26] MEDS ORDERED: Magnesium 2 GM/50 ML(in water) 2 GM in Premix Bag 1 BAG IVPB SCH (05:15)
[2021-09-26 05:16] LABS: Band 20 % (5-11); Lymphocytes 3 % (21-51); MDiff Complete? YES; Metamyelocyte 4 % (0-0); Monocytes 3 % (0-10); Myelocyte 2 % (0-0); Neutrophil 68 % (42-75); Toxic Granulation SLIGHT
[2021-09-26] MEDS: Levothyroxine Sodium 88 MCG TAB PO SCH (05:47)
[2021-09-26] MEDS: Lorazepam 2 MG/ML VIAL SLOW IVP PRN ×3 (08:32→23:08)
[2021-09-26] MEDS: DULoxetine 30 MG CAP PO SCH (08:48)
[2021-09-26] MEDS: Metoprolol Tartrate 25 MG TAB PER TUBE SCH ×2 (08:48→20:48)
[2021-09-26] MEDS: Aspirin Chewable 81 MG TAB PO SCH (08:48)
[2021-09-26] MEDS: Ezetimibe 10 MG TAB PO SCH (08:49)
[2021-09-26] MEDS: Folic Acid 1 MG TAB PO SCH (08:49)
[2021-09-26] MEDS: Cholecalciferol 1,000 UNITS (25 MCG) TAB PO SCH (08:49)
[2021-09-26] MEDS: Pantoprazole 40 MG VIAL IVP SCH ×3 (08:49→23:57)
[2021-09-26] MEDS: Nystatin Cream 15 GM TUBE TOP SCH ×3 (09:00→21:00)
[2021-09-26] MEDS: levETIRAcetam in NS 500 MG in Premix Bag 1 BAG IVPB SCH (20:24)
[2021-09-26] MEDS: D5 0.9% NS w/ 20 mEq KCl 1,000 ML IV SCH (20:43)
[2021-09-26] MEDS: Atorvastatin Calcium 20 MG TAB PO SCH (20:48)
[2021-09-27] MEDS: Meropenem 1 GM in Sodium Chloride 0.9% 100 ML IVPB SCH ×3 (01:49→19:07)
[2021-09-27] MEDS: Morphine 4 MG/ML VIAL SLOW IVP PRN ×4 (02:45→21:02)
[2021-09-27 04:48] LABS: Anion Gap 10 mmol/L (10-20); BUN (Urea Nitrogen) 13 mg/dL (8.4-25.7); Calc. Creatinine Clearance 123 mL/min (70-130); Calcium 7.8 mg/dL (7.8-10.44); Carbon Dioxide 30 mmol/L (23-31); Chloride 108 mmol/L (98-107); Glucose 99 mg/dL (83-110); Magnesium 1.9 mg/dL (1.6-2.6); Potassium 3.6 mmol/L (3.5-5.1); Sodium 144 mmol/L (136-145)
[2021-09-27] MEDS ORDERED: Magnesium 2 GM/50 ML(in water) 2 GM in Premix Bag 1 BAG IVPB SCH (05:30)
[2021-09-27 05:39] LABS: Band 14 % (5-11); Hemoglobin 7.6 g/dL (14.0-18.0); Lymphocytes 3 % (21-51); MDiff Complete? YES; Mean Corpuscular HGB CONC 30.3 g/dL (32.0-36.0); Mean Corpuscular Volume 89.2 fL (78.0-98.0); Mean Platelet Volume 7.1 fL (7.4-10.4); Monocytes 2 % (0-10); Neutrophil 81 % (42-75); Platelet Count 255 thou/uL (130-400); RBC Distribution Width 18.2 % (11.5-14.5); White Blood Cell (WBC) Count 11.7 thou/uL (4.8-10.8)
[2021-09-27] MEDS: Levothyroxine Sodium 88 MCG TAB PO SCH (05:46)
[2021-09-27] MEDS: Nystatin Cream 15 GM TUBE TOP SCH ×3 (09:00→20:41)
[2021-09-27] MEDS: Lorazepam 2 MG/ML VIAL SLOW IVP PRN (09:49)
[2021-09-27] MEDS: levETIRAcetam in NS 500 MG in Premix Bag 1 BAG IVPB SCH ×2 (13:14→20:40)
[2021-09-27] MEDS: Metoprolol Tartrate 25 MG TAB PER TUBE SCH ×2 (17:42→20:41)
[2021-09-27] MEDS: Ezetimibe 10 MG TAB PO SCH (17:42)
[2021-09-27] MEDS: DULoxetine 30 MG CAP PO SCH (17:42)
[2021-09-27] MEDS: Cholecalciferol 1,000 UNITS (25 MCG) TAB PO SCH (17:42)
[2021-09-27] MEDS: Aspirin Chewable 81 MG TAB PO SCH (17:42)
[2021-09-27] MEDS: Folic Acid 1 MG TAB PO SCH (17:43)
[2021-09-27] MEDS: D5 0.9% NS w/ 20 mEq KCl 1,000 ML IV SCH (17:54)
[2021-09-27] MEDS: Pantoprazole 40 MG VIAL IVP SCH (20:40)
[2021-09-27] MEDS: Heparin 5,000 UNITS/ML VIAL SC SCH (20:40)
[2021-09-28] MEDS: Meropenem 1 GM in Sodium Chloride 0.9% 100 ML IVPB SCH ×3 (00:07→18:44)
[2021-09-28 05:16] LABS: ALT (SGPT) 45 U/L (8-55); AST (SGOT) 37 U/L (5-34); Albumin 2.2 g/dL (3.4-4.8); Alkaline Phosphatase 304 U/L (40-110); Anion Gap 13 mmol/L (10-20); BUN (Urea Nitrogen) 16 mg/dL (8.4-25.7); Bilirubin, Total 1.1 mg/dL (0.2-1.2); Calc. Creatinine Clearance 107 mL/min (70-130); Calcium 8.1 mg/dL (7.8-10.44); Carbon Dioxide 28 mmol/L (23-31); Chloride 110 mmol/L (98-107); Globulin 2.8 g/dL (2.4-3.5); Glucose 126 mg/dL (83-110); Hemoglobin 8.6 g/dL (14.0-18.0); Magnesium 2.1 mg/dL (1.6-2.6); Mean Corpuscular HGB CONC 30.1 g/dL (32.0-36.0); Mean Corpuscular Hemoglobin 27.2 pg (27.0-31.0); Mean Corpuscular Volume 90.3 fL (78.0-98.0); Mean Platelet Volume 7.4 fL (7.4-10.4); Platelet Count 324 thou/uL (130-400); Potassium 3.7 mmol/L (3.5-5.1); RBC Distribution Width 18.9 % (11.5-14.5); Red Blood Cell (RBC) Count 3.17 mill/uL (4.70-6.10); Sodium 147 mmol/L (136-145); White Blood Cell (WBC) Count 17.2 thou/uL (4.8-10.8)
[2021-09-28] MEDS: Levothyroxine Sodium 88 MCG TAB PO SCH (05:37)
[2021-09-28 06:22] LABS: Band 14 % (5-11); MDiff Complete? YES; Metamyelocyte 4 % (0-0); Myelocyte 2 % (0-0); Neutrophil 80 % (42-75)
[2021-09-28] MEDS ORDERED: Multivit, Adult Inj 10 ML VIAL IV SCH (08:45)
[2021-09-28] MEDS ORDERED: Vancomycin 1 GM in Premix Bag 1 BAG IVPB SCH ×2 (08:45→09:00)
[2021-09-28] MEDS: Nystatin Cream 15 GM TUBE TOP SCH ×3 (10:30→22:08)
[2021-09-28] MEDS: Pantoprazole 40 MG VIAL IVP SCH ×2 (10:30→22:08)
[2021-09-28] MEDS: levETIRAcetam in NS 500 MG in Premix Bag 1 BAG IVPB SCH ×2 (10:30→22:29)
[2021-09-28] MEDS: Folic Acid 1 MG TAB PO SCH (10:43)
[2021-09-28] MEDS: Metoprolol Tartrate 25 MG TAB PER TUBE SCH ×2 (10:43→22:08)
[2021-09-28] MEDS: Aspirin Chewable 81 MG TAB PO SCH (10:43)
[2021-09-28] MEDS: Multivitamins, Adult 10 ML in D5 1/2 NS w/20 mEq KCL 1,000 ML IV SCH (11:07)
[2021-09-28] MEDS: D5 1/2 NS w/20 mEq KCL 1,000 ML IV SCH ×3 (11:08→21:59)
[2021-09-28] MEDS: Morphine 4 MG/ML VIAL SLOW IVP PRN (12:00)
[2021-09-29] MEDS: Meropenem 1 GM in Sodium Chloride 0.9% 100 ML IVPB SCH ×3 (01:30→18:04)
[2021-09-29] MEDS: Levothyroxine Sodium 88 MCG TAB PO SCH (05:05)
[2021-09-29 05:43] LABS: Anisocytosis SLIGHT = 6-15 cells (100X) (0-5/hpf); Band 22 % (5-11); Lymphocytes 5 % (21-51); MDiff Complete? YES; Mean Corpuscular HGB CONC 29.8 g/dL (32.0-36.0); Mean Corpuscular Volume 90.5 fL (78.0-98.0); Mean Platelet Volume 7.9 fL (7.4-10.4); Metamyelocyte 1 % (0-0); Monocytes 3 % (0-10); Myelocyte 2 % (0-0); Neutrophil 67 % (42-75); Platelet Count 208 thou/uL (130-400); RBC Distribution Width 18.5 % (11.5-14.5); Red Blood Cell (RBC) Count 2.95 mill/uL (4.70-6.10); White Blood Cell (WBC) Count 9.7 thou/uL (4.8-10.8)
[2021-09-29] MEDS ORDERED: Magnesium 2 GM/50 ML(in water) 2 GM in Premix Bag 1 BAG IVPB SCH (08:15)
[2021-09-29] MEDS: Pantoprazole 40 MG VIAL IVP SCH ×2 (10:12→20:35)
[2021-09-29] MEDS: Aspirin Chewable 81 MG TAB PO SCH (10:12)
[2021-09-29] MEDS: Folic Acid 1 MG TAB PO SCH (10:12)
[2021-09-29] MEDS: Metoprolol Tartrate 25 MG TAB PER TUBE SCH ×2 (10:12→20:35)
[2021-09-29] MEDS: Cholecalciferol 1,000 UNITS (25 MCG) TAB PO SCH (10:12)
[2021-09-29] MEDS: Nystatin Cream 15 GM TUBE TOP SCH ×3 (10:13→21:13)
[2021-09-29] MEDS: Multivitamins, Adult 10 ML in D5 1/2 NS w/20 mEq KCL 1,000 ML IV SCH (10:55)
[2021-09-29] MEDS: levETIRAcetam in NS 500 MG in Premix Bag 1 BAG IVPB SCH ×2 (10:55→21:13)
[2021-09-29] MEDS: Lorazepam 2 MG/ML VIAL SLOW IVP PRN (15:10)
[2021-09-30] MEDS: Morphine 4 MG/ML VIAL SLOW IVP PRN (01:10)
[2021-09-30] MEDS: Meropenem 1 GM in Sodium Chloride 0.9% 100 ML IVPB SCH ×3 (01:11→16:53)
[2021-09-30 04:31] LABS: Band 21 % (5-11); Hypochromia SLIGHT = 6-15 cells (100X) (0-5/hpf); Lymphocytes 1 % (21-51); MDiff Complete? YES; Mean Corpuscular HGB CONC 30.6 g/dL (32.0-36.0); Mean Corpuscular Hemoglobin 27.5 pg (27.0-31.0); Mean Platelet Volume 8.7 fL (7.4-10.4); Monocytes 6 % (0-10); Neutrophil 72 % (42-75); Platelet Count 194 thou/uL (130-400); Platelet Morphology Comment Appears Adequate; RBC Distribution Width 18.6 % (11.5-14.5); Red Blood Cell (RBC) Count 2.89 mill/uL (4.70-6.10); White Blood Cell (WBC) Count 8.5 thou/uL (4.8-10.8)
[2021-09-30 04:34] LABS: Anion Gap 13 mmol/L (10-20); BUN (Urea Nitrogen) 17 mg/dL (8.4-25.7); Calc. Creatinine Clearance 108 mL/min (70-130); Calcium 7.8 mg/dL (7.8-10.44); Carbon Dioxide 23 mmol/L (23-31); Chloride 117 mmol/L (98-107); Glucose 131 mg/dL (83-110); Sodium 149 mmol/L (136-145)
[2021-09-30] MEDS: Levothyroxine Sodium 88 MCG TAB PO SCH (05:48)
[2021-09-30] MEDS: Cholecalciferol 1,000 UNITS (25 MCG) TAB PO SCH (08:31)
[2021-09-30] MEDS: Metoprolol Tartrate 25 MG TAB PER TUBE SCH ×2 (08:31→22:11)
[2021-09-30] MEDS: Aspirin Chewable 81 MG TAB PO SCH (08:31)
[2021-09-30] MEDS: Folic Acid 1 MG TAB PO SCH (08:31)
[2021-09-30] MEDS: Pantoprazole 40 MG VIAL IVP SCH ×2 (08:32→22:11)
[2021-09-30] MEDS: Nystatin Cream 15 GM TUBE TOP SCH ×3 (09:00→22:12)
[2021-09-30] MEDS: levETIRAcetam in NS 500 MG in Premix Bag 1 BAG IVPB SCH (09:00)
[2021-09-30] MEDS: Heparin 5,000 UNITS/ML VIAL SC SCH (12:08)
[2021-09-30] MEDS: HYDROcodone/Acetaminophen 5/325 mg Tablet PER TUBE SCH ×3 (12:09→22:11)
[2021-09-30] MEDS ORDERED: levETIRAcetam 500 mg/5 ml Oral Solution PER TUBE SCH (21:00)
[2021-09-30] MEDS ORDERED: levETIRAcetam 500 MG TAB PER TUBE SCH (21:00)
[2021-09-30] MEDS: Apixaban 5 MG TAB PO SCH (22:10)
[2021-09-30] MEDS: VANCOMYCIN 1.25 GM/250 ML BAG 1.25 GM in Premix Bag 1 BAG IVPB SCH (22:13)
[2021-10-01] MEDS: Meropenem 1 GM in Sodium Chloride 0.9% 100 ML IVPB SCH ×3 (01:33→17:44)
[2021-10-01] MEDS: HYDROcodone/Acetaminophen 5/325 mg Tablet PER TUBE SCH ×7 (01:33→21:27)
[2021-10-01 04:34] LABS: Anion Gap 11 mmol/L (10-20); BUN (Urea Nitrogen) 21 mg/dL (8.4-25.7); Calc. Creatinine Clearance 111 mL/min (70-130); Calcium 7.5 mg/dL (7.8-10.44); Carbon Dioxide 26 mmol/L (23-31); Chloride 117 mmol/L (98-107); Glucose 170 mg/dL (83-110); Potassium 3.8 mmol/L (3.5-5.1); Sodium 150 mmol/L (136-145)
[2021-10-01 04:58] LABS: Anisocytosis SLIGHT = 6-15 cells (100X) (0-5/hpf); Band 15 % (5-11); Elliptocytes SLIGHT = 2-5 cells (100X) (0-1/hpf); Hemoglobin 7.4 g/dL (14.0-18.0); Hypochromia MODERATE=16-30 cells (100X) (0-5/hpf); Lymphocytes 2 % (21-51); MDiff Complete? YES; Mean Corpuscular HGB CONC 29.7 g/dL (32.0-36.0); Mean Corpuscular Hemoglobin 26.9 pg (27.0-31.0); Mean Corpuscular Volume 90.5 fL (78.0-98.0); Mean Platelet Volume 9.5 fL (7.4-10.4); Metamyelocyte 9 % (0-0); Monocytes 5 % (0-10); Myelocyte 4 % (0-0); Neutrophil 65 % (42-75); Platelet Count 122 thou/uL (130-400); Platelet Morphology Comment Appears Decreased; Polychromasia SLIGHT = 2-3 cells (100X) (0-2/hpf); RBC Distribution Width 18.4 % (11.5-14.5); Red Blood Cell (RBC) Count 2.77 mill/uL (4.70-6.10); White Blood Cell (WBC) Count 4.4 thou/uL (4.8-10.8)
[2021-10-01] MEDS: D5 1/2 NS w/20 mEq KCL 1,000 ML IV SCH (05:41)
[2021-10-01] MEDS ORDERED: cefTRIAXone\\ROCEPHIN 1 GM in Sodium Chloride 0.9% 100 ML IVPB SCH (06:00)
[2021-10-01] MEDS: Levothyroxine Sodium 88 MCG TAB PO SCH (06:42)
[2021-10-01] MEDS ORDERED: Dextrose 5% in Water 1,000 ML IV SCH (08:45)
[2021-10-01] MEDS: VANCOMYCIN 1.25 GM/250 ML BAG 1.25 GM in Premix Bag 1 BAG IVPB SCH ×2 (10:52→21:25)
[2021-10-01] MEDS: Furosemide 20 MG TAB PO SCH (10:52)
[2021-10-01] MEDS: Apixaban 5 MG TAB PO SCH ×2 (10:52→21:25)
[2021-10-01] MEDS: Metoprolol Tartrate 25 MG TAB PER TUBE SCH ×2 (10:52→21:25)
[2021-10-01] MEDS: Aspirin Chewable 81 MG TAB PO SCH (10:53)
[2021-10-01] MEDS: Pantoprazole 40 MG VIAL IVP SCH ×2 (10:54→21:26)
[2021-10-01] MEDS: Cholecalciferol 1,000 UNITS (25 MCG) TAB PO SCH (10:54)
[2021-10-01] MEDS ORDERED: HYDROcodone/Acetaminophen 5/325 mg Tablet PER TUBE SCH (12:00)
[2021-10-01] MEDS: Nystatin Cream 15 GM TUBE TOP SCH ×3 (12:27→21:26)
[2021-10-01] MEDS: Dextrose 5% in Water 1,000 ML IV SCH (12:49)
[2021-10-01 17:22] LABS: SARS-CoV-2 PCR by NAA Not Detected (NotDetected)
[2021-10-02] MEDS: Meropenem 1 GM in Sodium Chloride 0.9% 100 ML IVPB SCH ×3 (01:39→16:18)
[2021-10-02] MEDS: HYDROcodone/Acetaminophen 5/325 mg Tablet PER TUBE SCH ×7 (02:13→20:22)
[2021-10-02 04:45] LABS: Anion Gap 11 mmol/L (10-20); BUN (Urea Nitrogen) 22 mg/dL (8.4-25.7); Calc. Creatinine Clearance 118 mL/min (70-130); Calcium 7.9 mg/dL (7.8-10.44); Carbon Dioxide 26 mmol/L (23-31); Chloride 114 mmol/L (98-107); Glucose 73 mg/dL (83-110); Potassium 3.7 mmol/L (3.5-5.1); Sodium 147 mmol/L (136-145)
[2021-10-02 04:52] LABS: Hemoglobin 7.3 g/dL (14.0-18.0); Mean Corpuscular HGB CONC 29.9 g/dL (32.0-36.0); Mean Corpuscular Hemoglobin 26.7 pg (27.0-31.0); Mean Corpuscular Volume 89.3 fL (78.0-98.0); Mean Platelet Volume 9.7 fL (7.4-10.4); Platelet Count 135 thou/uL (130-400); RBC Distribution Width 18.4 % (11.5-14.5); Red Blood Cell (RBC) Count 2.75 mill/uL (4.70-6.10); White Blood Cell (WBC) Count 4.3 thou/uL (4.8-10.8)
[2021-10-02 04:53] LABS: Band 11 % (5-11); Hypochromia SLIGHT = 6-15 cells (100X) (0-5/hpf); Lymphocytes 7 % (21-51); MDiff Complete? YES; Monocytes 6 % (0-10); Neutrophil 76 % (42-75); Platelet Morphology Comment Appears Adequate
[2021-10-02] MEDS: Levothyroxine Sodium 88 MCG TAB PO SCH (06:18)
[2021-10-02] MEDS: Pantoprazole 40 MG VIAL IVP SCH ×2 (08:01→20:21)
[2021-10-02] MEDS: VANCOMYCIN 1.25 GM/250 ML BAG 1.25 GM in Premix Bag 1 BAG IVPB SCH ×2 (08:01→20:26)
[2021-10-02] MEDS: Dextrose 5% in Water 1,000 ML IV SCH (08:02)
[2021-10-02] MEDS: Cholecalciferol 1,000 UNITS (25 MCG) TAB PO SCH (08:02)
[2021-10-02] MEDS: Nystatin Cream 15 GM TUBE TOP SCH ×3 (08:02→20:21)
[2021-10-02] MEDS: Aspirin Chewable 81 MG TAB PO SCH (08:02)
[2021-10-02] MEDS: Apixaban 5 MG TAB PO SCH ×2 (08:02→20:20)
[2021-10-02] MEDS: Furosemide 20 MG TAB PO SCH (08:02)
[2021-10-02] MEDS: Metoprolol Tartrate 25 MG TAB PER TUBE SCH ×2 (08:02→20:23)
[2021-10-02 08:30] LABS: Vancomycin, Trough 19.9 ug/mL
[2021-10-02] MEDS ORDERED: Dextrose 50% Abboject 50 ML SYRINGE SLOW IVP PRN (19:27)
[2021-10-03] MEDS: HYDROcodone/Acetaminophen 5/325 mg Tablet PER TUBE SCH ×7 (02:25→23:36)
[2021-10-03] MEDS: Meropenem 1 GM in Sodium Chloride 0.9% 100 ML IVPB SCH ×3 (02:26→17:43)
[2021-10-03 04:02] LABS: Hemoglobin 8.6 g/dL (14.0-18.0); Mean Corpuscular HGB CONC 32.8 g/dL (32.0-36.0); Mean Corpuscular Volume 88.4 fL (78.0-98.0); Mean Platelet Volume 9.4 fL (7.4-10.4); Platelet Count 167 thou/uL (130-400); RBC Distribution Width 18.4 % (11.5-14.5); Red Blood Cell (RBC) Count 2.98 mill/uL (4.70-6.10); White Blood Cell (WBC) Count 6.8 thou/uL (4.8-10.8)
[2021-10-03 04:09] LABS: Anion Gap 13 mmol/L (10-20); Calcium 7.9 mg/dL (7.8-10.44); Carbon Dioxide 20 mmol/L (23-31); Chloride 116 mmol/L (98-107); Potassium 3.7 mmol/L (3.5-5.1); Sodium 145 mmol/L (136-145)
[2021-10-03 04:17] LABS: BUN (Urea Nitrogen) 23 mg/dL (8.4-25.7); Calc. Creatinine Clearance 106 mL/min (70-130); Glucose 78 mg/dL (83-110)
[2021-10-03 05:15] LABS: Band 21 % (5-11); Lymphocytes 4 % (21-51); MDiff Complete? YES; Metamyelocyte 8 % (0-0); Monocytes 1 % (0-10); Myelocyte 4 % (0-0); Neutrophil 62 % (42-75); Platelet Morphology Comment Appears Adequate; RBC Morphology Normal
[2021-10-03] MEDS: Levothyroxine Sodium 88 MCG TAB PO SCH (05:42)
[2021-10-03] MEDS: Dextrose 5% in Water 1,000 ML IV SCH (05:50)
[2021-10-03] MEDS: Furosemide 20 MG TAB PO SCH (10:05)
[2021-10-03] MEDS: Aspirin Chewable 81 MG TAB PO SCH (10:05)
[2021-10-03] MEDS: Metoprolol Tartrate 25 MG TAB PER TUBE SCH ×2 (10:05→21:56)
[2021-10-03] MEDS: Apixaban 5 MG TAB PO SCH ×2 (10:06→21:59)
[2021-10-03] MEDS: Nystatin Cream 15 GM TUBE TOP SCH ×3 (10:06→22:00)
[2021-10-03] MEDS: Pantoprazole 40 MG VIAL IVP SCH ×2 (10:06→21:58)
[2021-10-03] MEDS: VANCOMYCIN 1.25 GM/250 ML BAG 1.25 GM in Premix Bag 1 BAG IVPB SCH (10:06)
[2021-10-03] MEDS: Cholecalciferol 1,000 UNITS (25 MCG) TAB PO SCH (10:06)
[2021-10-03] MEDS ORDERED: HYDROcodone/Acetaminophen 5/325 mg Tablet PER TUBE SCH (16:00)
[2021-10-03 20:27] LABS: Vancomycin, Trough 29.5 ug/mL
[2021-10-03] MEDS ORDERED: Vancomycin HCl 1.25 GM, Admixture Fee 1 EACH in Sodium Chloride 0.9% 250 ML 250 ML IVPB SCH (21:00)
[2021-10-04] MEDS: Meropenem 1 GM in Sodium Chloride 0.9% 100 ML IVPB SCH ×4 (01:07→19:35)
[2021-10-04] MEDS: HYDROcodone/Acetaminophen 5/325 mg Tablet PER TUBE SCH ×5 (04:46→21:39)
[2021-10-04] MEDS: Levothyroxine Sodium 88 MCG TAB PO SCH (04:49)
[2021-10-04 06:14] LABS: Band 11 % (5-11); Hemoglobin 7.6 g/dL (14.0-18.0); Hypochromia SLIGHT = 6-15 cells (100X) (0-5/hpf); Lymphocytes 3 % (21-51); MDiff Complete? YES; Mean Corpuscular HGB CONC 30.8 g/dL (32.0-36.0); Mean Corpuscular Hemoglobin 27.1 pg (27.0-31.0); Mean Corpuscular Volume 88.1 fL (78.0-98.0); Mean Platelet Volume 9.8 fL (7.4-10.4); Metamyelocyte 1 % (0-0); Monocytes 4 % (0-10); Neutrophil 81 % (42-75); Platelet Count 135 thou/uL (130-400); Platelet Morphology Comment Appears Adequate; RBC Distribution Width 18.7 % (11.5-14.5); Red Blood Cell (RBC) Count 2.81 mill/uL (4.70-6.10); White Blood Cell (WBC) Count 4.6 thou/uL (4.8-10.8)
[2021-10-04 06:19] LABS: Anion Gap 12 mmol/L (10-20); BUN (Urea Nitrogen) 27 mg/dL (8.4-25.7); Calc. Creatinine Clearance 97 mL/min (70-130); Calcium 8.3 mg/dL (7.8-10.44); Carbon Dioxide 24 mmol/L (23-31); Chloride 116 mmol/L (98-107); Glucose 121 mg/dL (83-110); Potassium 3.3 mmol/L (3.5-5.1); Sodium 149 mmol/L (136-145)
[2021-10-04] MEDS: Pantoprazole 40 MG VIAL IVP SCH ×2 (09:15→21:40)
[2021-10-04] MEDS: Vancomycin HCl 750 MG in Sodium Chloride 0.9% 250 ML 250 ML IVPB SCH ×2 (09:15→21:57)
[2021-10-04] MEDS: Metoprolol Tartrate 25 MG TAB PER TUBE SCH ×2 (09:35→21:40)
[2021-10-04] MEDS: Furosemide 20 MG TAB PO SCH (09:35)
[2021-10-04] MEDS: Aspirin Chewable 81 MG TAB PO SCH (09:35)
[2021-10-04] MEDS: Cholecalciferol 1,000 UNITS (25 MCG) TAB PO SCH (09:36)
[2021-10-04] MEDS: Apixaban 5 MG TAB PO SCH ×2 (09:37→21:40)
[2021-10-04] MEDS: Nystatin Cream 15 GM TUBE TOP SCH ×3 (10:02→21:40)
[2021-10-04] MEDS: Dextrose 5% in Water 1,000 ML IV SCH (10:02)
[2021-10-04] MEDS ORDERED: Potassium Bicarbonate/Cit Ac 20 MEQ TAB PO SCH (11:45)
[2021-10-05] MEDS: Meropenem 1 GM in Sodium Chloride 0.9% 100 ML IVPB SCH ×3 (00:45→16:12)
[2021-10-05] MEDS: HYDROcodone/Acetaminophen 5/325 mg Tablet PER TUBE SCH ×6 (00:46→21:27)
[2021-10-05 05:15] LABS: Anion Gap 10 mmol/L (10-20); BUN (Urea Nitrogen) 29 mg/dL (8.4-25.7); Calc. Creatinine Clearance 107 mL/min (70-130); Calcium 8.1 mg/dL (7.8-10.44); Carbon Dioxide 28 mmol/L (23-31); Chloride 117 mmol/L (98-107); Glucose 103 mg/dL (83-110); Potassium 3.4 mmol/L (3.5-5.1); Sodium 152 mmol/L (136-145)
[2021-10-05] MEDS: Levothyroxine Sodium 88 MCG TAB PO SCH (05:45)
[2021-10-05 05:59] LABS: Anisocytosis SLIGHT = 6-15 cells (100X) (0-5/hpf); Band 8 % (5-11); Hemoglobin 7.8 g/dL (14.0-18.0); Hypochromia SLIGHT = 6-15 cells (100X) (0-5/hpf); Lymphocytes 15 % (21-51); MDiff Complete? YES; Mean Corpuscular HGB CONC 31.1 g/dL (32.0-36.0); Mean Corpuscular Hemoglobin 27.3 pg (27.0-31.0); Mean Corpuscular Volume 87.9 fL (78.0-98.0); Mean Platelet Volume 9.6 fL (7.4-10.4); Metamyelocyte 2 % (0-0); Monocytes 5 % (0-10); Neutrophil 70 % (42-75); Platelet Count 110 thou/uL (130-400); Platelet Morphology Comment Appears Decreased; Polychromasia SLIGHT = 2-3 cells (100X) (0-2/hpf); RBC Distribution Width 17.9 % (11.5-14.5); Red Blood Cell (RBC) Count 2.85 mill/uL (4.70-6.10); White Blood Cell (WBC) Count 3.5 thou/uL (4.8-10.8)
[2021-10-05] MEDS ORDERED: Potassium Bicarbonate/Cit Ac 20 MEQ TAB PO SCH (06:30)
[2021-10-05] MEDS: Dextrose 5% in Water 1,000 ML IV SCH ×3 (08:16→23:24)
[2021-10-05] MEDS: Pantoprazole 40 MG VIAL IVP SCH ×2 (08:16→21:30)
[2021-10-05] MEDS: Aspirin Chewable 81 MG TAB PO SCH (08:17)
[2021-10-05] MEDS: Cholecalciferol 1,000 UNITS (25 MCG) TAB PO SCH (08:17)
[2021-10-05] MEDS: Apixaban 5 MG TAB PO SCH ×2 (08:17→21:30)
[2021-10-05] MEDS: Metoprolol Tartrate 25 MG TAB PER TUBE SCH ×2 (08:17→21:30)
[2021-10-05] MEDS: Furosemide 20 MG TAB PO SCH (08:17)
[2021-10-05] MEDS: Vancomycin HCl 750 MG in Sodium Chloride 0.9% 250 ML 250 ML IVPB SCH ×2 (09:10→22:42)
[2021-10-05] MEDS: Nystatin Cream 15 GM TUBE TOP SCH ×3 (09:10→22:11)
[2021-10-05 20:51] LABS: Vancomycin, Trough 22.5 ug/mL
[2021-10-06] MEDS: HYDROcodone/Acetaminophen 5/325 mg Tablet PER TUBE SCH ×6 (00:42→20:27)
[2021-10-06] MEDS: Meropenem 1 GM in Sodium Chloride 0.9% 100 ML IVPB SCH ×2 (00:42→08:40)
[2021-10-06] MEDS ORDERED: Vancomycin HCl 750 MG in Sodium Chloride 0.9% 250 ML 250 ML IVPB SCH (03:00)
[2021-10-06 05:29] LABS: Anion Gap 9 mmol/L (10-20); BUN (Urea Nitrogen) 18 mg/dL (8.4-25.7); Calc. Creatinine Clearance 103 mL/min (70-130); Calcium 7.7 mg/dL (7.8-10.44); Carbon Dioxide 30 mmol/L (23-31); Chloride 114 mmol/L (98-107); Glucose 90 mg/dL (83-110); Potassium 3.2 mmol/L (3.5-5.1); Sodium 150 mmol/L (136-145)
[2021-10-06] MEDS: Levothyroxine Sodium 88 MCG TAB PO SCH (05:38)
[2021-10-06 06:05] LABS: Band 6 % (5-11); Hemoglobin 7.9 g/dL (14.0-18.0); Hypochromia SLIGHT = 6-15 cells (100X) (0-5/hpf); Lymphocytes 12 % (21-51); MDiff Complete? YES; Mean Corpuscular HGB CONC 31.3 g/dL (32.0-36.0); Mean Corpuscular Hemoglobin 27.6 pg (27.0-31.0); Mean Corpuscular Volume 88.1 fL (78.0-98.0); Mean Platelet Volume 9.5 fL (7.4-10.4); Neutrophil 82 % (42-75); Platelet Count 98 thou/uL (130-400); Platelet Morphology Comment Appears Decreased; RBC Distribution Width 18.4 % (11.5-14.5); Red Blood Cell (RBC) Count 2.87 mill/uL (4.70-6.10); White Blood Cell (WBC) Count 3.1 thou/uL (4.8-10.8)
[2021-10-06] MEDS: Apixaban 5 MG TAB PO SCH ×2 (08:39→20:41)
[2021-10-06] MEDS: Pantoprazole 40 MG VIAL IVP SCH ×2 (08:40→20:33)
[2021-10-06] MEDS: Cholecalciferol 1,000 UNITS (25 MCG) TAB PO SCH (08:42)
[2021-10-06] MEDS: Aspirin Chewable 81 MG TAB PO SCH (08:42)
[2021-10-06] MEDS: Metoprolol Tartrate 25 MG TAB PER TUBE SCH ×2 (08:42→20:33)
[2021-10-06] MEDS: Nystatin Cream 15 GM TUBE TOP SCH ×3 (08:43→20:34)
[2021-10-06 09:45] LABS: Iron 15 ug/dL (65-175); Iron Binding Capacity, Total 65 mcg/dL (261-462)
[2021-10-06 10:11] LABS: Vitamin B12 Greater than 2000 pg/mL (211-911)
[2021-10-06] MEDS: Dextrose 5% in Water 1,000 ML IV SCH (13:07)
[2021-10-07] MEDS: HYDROcodone/Acetaminophen 5/325 mg Tablet PO SCH ×6 (00:59→22:29)
[2021-10-07] MEDS: Dextrose 5% in Water 1,000 ML IV SCH (02:15)
[2021-10-07] MEDS: Levothyroxine Sodium 88 MCG TAB PO SCH (06:15)
[2021-10-07] MEDS: Pantoprazole 40 MG VIAL IVP SCH ×2 (08:40→21:43)
[2021-10-07] MEDS: Apixaban 5 MG TAB PO SCH ×2 (08:40→21:46)
[2021-10-07] MEDS: Cholecalciferol 1,000 UNITS (25 MCG) TAB PO SCH (08:40)
[2021-10-07] MEDS: Aspirin Chewable 81 MG TAB PO SCH (08:41)
[2021-10-07] MEDS: Metoprolol Tartrate 25 MG TAB PO SCH (08:42)
[2021-10-07] MEDS: Nystatin Cream 15 GM TUBE TOP SCH ×2 (08:42→15:26)
[2021-10-07 08:57] LABS: Mean Corpuscular HGB CONC 30.8 g/dL (32.0-36.0); Mean Corpuscular Hemoglobin 27.3 pg (27.0-31.0); Mean Corpuscular Volume 88.4 fL (78.0-98.0); RBC Distribution Width 18.9 % (11.5-14.5); Red Blood Cell (RBC) Count 2.94 mill/uL (4.70-6.10); White Blood Cell (WBC) Count 3.5 thou/uL (4.8-10.8)
[2021-10-07 09:12] LABS: Anion Gap 9 mmol/L (10-20); BUN (Urea Nitrogen) 18 mg/dL (8.4-25.7); Calc. Creatinine Clearance 108 mL/min (70-130); Calcium 7.5 mg/dL (7.8-10.44); Carbon Dioxide 28 mmol/L (23-31); Chloride 112 mmol/L (98-107); Glucose 118 mg/dL (83-110); Sodium 146 mmol/L (136-145)
[2021-10-07 09:20] LABS: Anisocytosis SLIGHT = 6-15 cells (100X) (0-5/hpf); Band 11 % (5-11); Lymphocytes 2 % (21-51); MDiff Complete? YES; Mean Platelet Volume 9.5 fL (7.4-10.4); Metamyelocyte 2 % (0-0); Monocytes 1 % (0-10); Neutrophil 83 % (42-75); Ovalocytes SLIGHT = 2-5 cells (100X) (0-1/hpf); Platelet Count 112 thou/uL (130-400); Platelet Morphology Comment Appears Decreased; Polychromasia SLIGHT = 2-3 cells (100X) (0-2/hpf); Reactive Lymphocytes 1 % (0-10)
[2021-10-07] MEDS ORDERED: Potassium Chloride 20 MEQ TAB PO SCH ×2 (10:00→18:30)
[2021-10-07] MEDS ORDERED: Morphine 2 MG/ML VIAL SLOW IVP PRN (10:22)
[2021-10-07] MEDS ORDERED: Potassium Chloride 20 MEQ in Premix Bag 1 BAG IVPB SCH (10:30)
[2021-10-07] MEDS: Haloperidol 1 MG TAB PO SCH (21:44)
[2021-10-07] MEDS ORDERED: Amiodarone 150 MG in Dextrose 5% in Water 100 ML IVPB SCH (21:45)
[2021-10-07 22:30] LABS: Anion Gap 10 mmol/L (10-20); BUN (Urea Nitrogen) 19 mg/dL (8.4-25.7); Calc. Creatinine Clearance 102 mL/min (70-130); Calcium 7.5 mg/dL (7.8-10.44); Carbon Dioxide 27 mmol/L (23-31); Chloride 111 mmol/L (98-107); Glucose 85 mg/dL (83-110); Sodium 145 mmol/L (136-145)
[2021-10-08] MEDS: Metoprolol Tartrate 25 MG TAB PO SCH ×3 (00:47→21:42)
[2021-10-08] MEDS: Dextrose 5% in Water 1,000 ML IV SCH ×3 (01:30→21:46)
[2021-10-08] MEDS: HYDROcodone/Acetaminophen 5/325 mg Tablet PO SCH ×6 (01:32→21:42)
[2021-10-08] MEDS: Potassium Chloride 20 MEQ in Premix Bag 1 BAG IVPB SCH ×2 (02:09→05:06)
[2021-10-08] MEDS: Nystatin Cream 15 GM TUBE TOP SCH ×4 (02:09→21:46)
[2021-10-08 04:28] LABS: Anion Gap 10 mmol/L (10-20); BUN (Urea Nitrogen) 19 mg/dL (8.4-25.7); Calc. Creatinine Clearance 100 mL/min (70-130); Calcium 7.8 mg/dL (7.8-10.44); Carbon Dioxide 27 mmol/L (23-31); Chloride 113 mmol/L (98-107); Glucose 94 mg/dL (83-110); Potassium 3.7 mmol/L (3.5-5.1); Sodium 146 mmol/L (136-145)
[2021-10-08] MEDS: Levothyroxine Sodium 88 MCG TAB PO SCH (06:12)
[2021-10-08 06:26] LABS: Hemoglobin 7.9 g/dL (14.0-18.0); Mean Corpuscular HGB CONC 30.4 g/dL (32.0-36.0); Mean Corpuscular Hemoglobin 26.9 pg (27.0-31.0); Mean Corpuscular Volume 88.4 fL (78.0-98.0); Mean Platelet Volume 9.5 fL (7.4-10.4); Platelet Count 116 thou/uL (130-400); Red Blood Cell (RBC) Count 2.92 mill/uL (4.70-6.10); White Blood Cell (WBC) Count 4.2 thou/uL (4.8-10.8)
[2021-10-08 06:48] LABS: Anisocytosis SLIGHT = 6-15 cells (100X) (0-5/hpf); Band 20 % (5-11); Lymphocytes 9 % (21-51); MDiff Complete? YES; Monocytes 5 % (0-10); Myelocyte 2 % (0-0); Neutrophil 64 % (42-75); Platelet Morphology Comment Appears Adequate
[2021-10-08] MEDS: Pantoprazole 40 MG VIAL IVP SCH ×2 (08:48→21:45)
[2021-10-08] MEDS: Cholecalciferol 1,000 UNITS (25 MCG) TAB PO SCH (08:48)
[2021-10-08] MEDS: Apixaban 5 MG TAB PO SCH ×2 (08:48→21:42)
[2021-10-08] MEDS: Aspirin Chewable 81 MG TAB PO SCH (08:48)
[2021-10-08] MEDS: Haloperidol 1 MG TAB PO SCH ×2 (10:27→21:42)
[2021-10-08] MEDS ORDERED: Meropenem 1 GM in Sodium Chloride 0.9% 100 ML IVPB SCH (13:00)
[2021-10-08] MEDS ORDERED: D5W-AA 4.25% with LYTES 1,000 ML IV SCH (19:15)
[2021-10-08] MEDS: Meropenem 1 GM in Sodium Chloride 0.9% 100 ML IVPB SCH (21:44)
[2021-10-08 21:55] LABS: SARS-CoV-2 PCR by NAA Not Detected (NotDetected)
[2021-10-09] MEDS: HYDROcodone/Acetaminophen 5/325 mg Tablet PO SCH ×6 (02:13→21:19)
[2021-10-09] MEDS: AA 4.25 %/CALCIUM/LYTES/D5W 2,000 ML IV SCH (02:47)
[2021-10-09 03:58] LABS: Anion Gap 8 mmol/L (10-20); BUN (Urea Nitrogen) 15 mg/dL (8.4-25.7); Calc. Creatinine Clearance 118 mL/min (70-130); Calcium 7.5 mg/dL (7.8-10.44); Carbon Dioxide 27 mmol/L (23-31); Chloride 111 mmol/L (98-107); Glucose 72 mg/dL (83-110); Potassium 3.4 mmol/L (3.5-5.1); Sodium 143 mmol/L (136-145)
[2021-10-09 04:21] LABS: Band 27 % (5-11); Hemoglobin 7.2 g/dL (14.0-18.0); Lymphocytes 1 % (21-51); MDiff Complete? YES; Mean Corpuscular HGB CONC 30.8 g/dL (32.0-36.0); Mean Corpuscular Hemoglobin 27.3 pg (27.0-31.0); Mean Corpuscular Volume 88.7 fL (78.0-98.0); Mean Platelet Volume 9.3 fL (7.4-10.4); Metamyelocyte 3 % (0-0); Monocytes 1 % (0-10); Myelocyte 1 % (0-0); Neutrophil 67 % (42-75); Platelet Count 93 thou/uL (130-400); Platelet Morphology Comment Appears Decreased; RBC Distribution Width 19.4 % (11.5-14.5); Red Blood Cell (RBC) Count 2.63 mill/uL (4.70-6.10); White Blood Cell (WBC) Count 2.4 thou/uL (4.8-10.8)
[2021-10-09] MEDS ORDERED: Potassium Chloride 20 MEQ TAB PO SCH (05:30)
[2021-10-09] MEDS: Levothyroxine Sodium 88 MCG TAB PO SCH (06:05)
[2021-10-09] MEDS: Meropenem 1 GM in Sodium Chloride 0.9% 100 ML IVPB SCH ×3 (06:06→21:13)
[2021-10-09] MEDS: Cholecalciferol 1,000 UNITS (25 MCG) TAB PO SCH (09:30)
[2021-10-09] MEDS: Haloperidol 1 MG TAB PO SCH (09:30)
[2021-10-09] MEDS: Pantoprazole 40 MG VIAL IVP SCH ×2 (09:30→21:19)
[2021-10-09] MEDS: Aspirin Chewable 81 MG TAB PO SCH (09:30)
[2021-10-09] MEDS: Apixaban 5 MG TAB PO SCH ×2 (09:30→21:23)
[2021-10-09] MEDS: Metoprolol Tartrate 25 MG TAB PO SCH ×2 (09:30→21:23)
[2021-10-09] MEDS: Nystatin Cream 15 GM TUBE TOP SCH ×3 (09:31→21:19)
[2021-10-09] MEDS: Dextrose 5% in Water 1,000 ML IV SCH (11:46)
[2021-10-09] MEDS: Lorazepam 2 MG/ML VIAL SLOW IVP PRN (18:43)
[2021-10-10] MEDS: HYDROcodone/Acetaminophen 5/325 mg Tablet PO SCH ×3 (00:51→08:45)
[2021-10-10] MEDS: Meropenem 1 GM in Sodium Chloride 0.9% 100 ML IVPB SCH ×3 (05:14→21:47)
[2021-10-10] MEDS: Levothyroxine Sodium 88 MCG TAB PO SCH (05:14)
[2021-10-10] MEDS: Pantoprazole 40 MG VIAL IVP SCH ×2 (08:45→21:48)
[2021-10-10] MEDS: Aspirin Chewable 81 MG TAB PO SCH (08:46)
[2021-10-10] MEDS: Nystatin Cream 15 GM TUBE TOP SCH ×3 (08:46→21:48)
[2021-10-10] MEDS: Apixaban 5 MG TAB PO SCH ×2 (08:46→21:48)
[2021-10-10] MEDS: Cholecalciferol 1,000 UNITS (25 MCG) TAB PO SCH (08:46)
[2021-10-10] MEDS: Metoprolol Tartrate 25 MG TAB PO SCH ×2 (08:50→21:48)
[2021-10-10] MEDS ORDERED: HYDROcodone/Acetaminophen 5/325 mg Tablet PO PRN (10:14)
[2021-10-10 10:49] LABS: ALT (SGPT) 23 U/L (8-55); AST (SGOT) 27 U/L (5-34); Albumin 1.6 g/dL (3.4-4.8); Alkaline Phosphatase 196 U/L (40-110); Anion Gap 10 mmol/L (10-20); BUN (Urea Nitrogen) 18 mg/dL (8.4-25.7); Bilirubin, Total 1.1 mg/dL (0.2-1.2); Calc. Creatinine Clearance 122 mL/min (70-130); Calcium 7.8 mg/dL (7.8-10.44); Carbon Dioxide 25 mmol/L (23-31); Chloride 114 mmol/L (98-107); Globulin 2.2 g/dL (2.4-3.5); Glucose 80 mg/dL (83-110); Potassium 3.8 mmol/L (3.5-5.1); Protein, Total 3.8 g/dL (5.8-8.1); Sodium 145 mmol/L (136-145)
[2021-10-10 13:07] LABS: INR-International Normal Ratio 2.2; Prothrombin Time 25.2 sec (12.0-14.7)
[2021-10-11] MEDS: Lorazepam 2 MG/ML VIAL SLOW IVP PRN ×3 (01:01→22:59)
[2021-10-11 04:22] LABS: Hemoglobin 8.1 g/dL (14.0-18.0); Mean Corpuscular HGB CONC 33.8 g/dL (32.0-36.0); Mean Corpuscular Hemoglobin 31.5 pg (27.0-31.0); Mean Corpuscular Volume 93.2 fL (78.0-98.0); RBC Distribution Width 15.2 % (11.5-14.5); Red Blood Cell (RBC) Count 2.58 mill/uL (4.70-6.10)
[2021-10-11 04:37] LABS: #Lymphocytes 0.4 thou/uL (1.20-3.40); #Monocytes 0.6 thou/uL (0.11-0.59); %Eosinophils 0.1 % (0.0-10.0); %Lymphocytes 5.3 % (21.0-51.0); %Monocytes 7.8 % (0.0-10.0); %Neutrophils 86.8 % (42.0-75.0); Mean Platelet Volume 10.1 fL (7.4-10.4); Platelet Count 49 thou/uL (130-400); Platelet Morphology Comment Appears Decreased
[2021-10-11 05:07] LABS: Albumin 1.6 g/dL (3.4-4.8)
[2021-10-11 05:08] LABS: Chloride 114 mmol/L (98-107)
[2021-10-11 05:09] LABS: Calcium 7.5 mg/dL (7.8-10.44); Potassium 3.8 mmol/L (3.5-5.1); Sodium 147 mmol/L (136-145)
[2021-10-11 05:10] LABS: Globulin 1.8 g/dL (2.4-3.5); Glucose 77 mg/dL (83-110); Protein, Total 3.4 g/dL (5.8-8.1)
[2021-10-11] MEDS: Meropenem 1 GM in Sodium Chloride 0.9% 100 ML IVPB SCH ×3 (05:10→20:03)
[2021-10-11 05:11] LABS: Anion Gap 11 mmol/L (10-20); Carbon Dioxide 26 mmol/L (23-31)
[2021-10-11 05:12] LABS: Bilirubin, Total 1.1 mg/dL (0.2-1.2)
[2021-10-11 05:13] LABS: Alkaline Phosphatase 185 U/L (40-110); Calc. Creatinine Clearance 105 mL/min (70-130)
[2021-10-11 05:14] LABS: BUN (Urea Nitrogen) 17 mg/dL (8.4-25.7)
[2021-10-11 05:15] LABS: AST (SGOT) 29 U/L (5-34); Magnesium 2.1 mg/dL (1.6-2.6)
[2021-10-11 05:16] LABS: ALT (SGPT) 23 U/L (8-55)
[2021-10-11 05:50] LABS: Band 25 % (5-11); Hemoglobin 6.8 g/dL (14.0-18.0); Lymphocytes 2 % (21-51); MDiff Complete? YES; Mean Corpuscular HGB CONC 30.1 g/dL (32.0-36.0); Mean Corpuscular Hemoglobin 27.2 pg (27.0-31.0); Mean Corpuscular Volume 90.1 fL (78.0-98.0); Mean Platelet Volume 8.7 fL (7.4-10.4); Metamyelocyte 2 % (0-0); Monocytes 5 % (0-10); Myelocyte 2 % (0-0); Neutrophil 64 % (42-75); Platelet Count 114 thou/uL (130-400); Platelet Morphology Comment Appears Decreased; RBC Distribution Width 19.3 % (11.5-14.5); Red Blood Cell (RBC) Count 2.51 mill/uL (4.70-6.10); White Blood Cell (WBC) Count 2.3 thou/uL (4.8-10.8)
[2021-10-11] MEDS: Levothyroxine Sodium 88 MCG TAB PO SCH (06:05)
[2021-10-11] MEDS: AA 4.25 %/CALCIUM/LYTES/D5W 2,000 ML IV SCH (08:16)
[2021-10-11] MEDS ORDERED: Furosemide 20 MG/2 ML VIAL SLOW IVP SCH (09:00)
[2021-10-11] MEDS: Pantoprazole 40 MG VIAL IVP SCH ×2 (09:29→20:03)
[2021-10-11] MEDS: Albumin 25% 25 GM/100 ML BOT IVPB SCH ×3 (09:30→20:02)
[2021-10-11] MEDS: Vancomycin 1 GM in Premix Bag 1 BAG IVPB SCH ×2 (09:30→22:59)
[2021-10-11] MEDS ORDERED: Iopamidol-370 76% 500 ML 1 ML ONE (09:44)
[2021-10-11] MEDS: Cholecalciferol 1,000 UNITS (25 MCG) TAB PO SCH (14:40)
[2021-10-11] MEDS: Apixaban 5 MG TAB PO SCH ×2 (14:40→20:02)
[2021-10-11] MEDS: Metoprolol Tartrate 25 MG TAB PO SCH ×2 (14:40→20:03)
[2021-10-11] MEDS: Aspirin Chewable 81 MG TAB PO SCH (14:40)
[2021-10-11] MEDS: Nystatin Cream 15 GM TUBE TOP SCH ×3 (14:41→20:03)
[2021-10-11] MEDS: Furosemide 20 MG/2 ML VIAL SLOW IVP SCH (20:03)
[2021-10-12] MEDS: Albumin 25% 25 GM/100 ML BOT IVPB SCH (01:31)
[2021-10-12 04:39] LABS: ALT (SGPT) 18 U/L (8-55); AST (SGOT) 25 U/L (5-34); Albumin 2.6 g/dL (3.4-4.8); Alkaline Phosphatase 161 U/L (40-110); Anion Gap 11 mmol/L (10-20); BUN (Urea Nitrogen) 13 mg/dL (8.4-25.7); Bilirubin, Total 1.9 mg/dL (0.2-1.2); Calc. Creatinine Clearance 111 mL/min (70-130); Calcium 8.4 mg/dL (7.8-10.44); Carbon Dioxide 29 mmol/L (23-31); Chloride 112 mmol/L (98-107); Globulin 1.8 g/dL (2.4-3.5); Glucose 79 mg/dL (83-110); Potassium 3.2 mmol/L (3.5-5.1); Protein, Total 4.4 g/dL (5.8-8.1); Sodium 149 mmol/L (136-145)
[2021-10-12 05:13] LABS: Anisocytosis SLIGHT = 6-15 cells (100X) (0-5/hpf); Band 11 % (5-11); Elliptocytes SLIGHT = 2-5 cells (100X) (0-1/hpf); Eosinophils 2 % (0-10); Hemoglobin 6.6 g/dL (14.0-18.0); Lymphocytes 13 % (21-51); MDiff Complete? YES; Mean Corpuscular HGB CONC 31.1 g/dL (32.0-36.0); Mean Platelet Volume 8.2 fL (7.4-10.4); Metamyelocyte 2 % (0-0); Myelocyte 1 % (0-0); Neutrophil 69 % (42-75); Platelet Count 115 thou/uL (130-400); Platelet Morphology Comment Appears Decreased; RBC Distribution Width 19.8 % (11.5-14.5); Red Blood Cell (RBC) Count 2.35 mill/uL (4.70-6.10); White Blood Cell (WBC) Count 2.2 thou/uL (4.8-10.8)
[2021-10-12] MEDS ORDERED: Potassium Chloride 20 MEQ TAB PO SCH (05:15)
[2021-10-12] MEDS: Meropenem 1 GM in Sodium Chloride 0.9% 100 ML IVPB SCH ×3 (05:15→20:48)
[2021-10-12] MEDS: Levothyroxine Sodium 88 MCG TAB PO SCH (05:16)
[2021-10-12] MEDS: Pantoprazole 40 MG VIAL IVP SCH ×2 (09:29→20:45)
[2021-10-12] MEDS: Vancomycin 1 GM in Premix Bag 1 BAG IVPB SCH ×2 (09:29→20:48)
[2021-10-12] MEDS: Furosemide 20 MG/2 ML VIAL SLOW IVP SCH ×2 (09:29→20:43)
[2021-10-12] MEDS: Potassium Chloride 20 MEQ in Premix Bag 1 BAG IVPB SCH (09:30)
[2021-10-12] MEDS: Cholecalciferol 1,000 UNITS (25 MCG) TAB PO SCH (09:31)
[2021-10-12] MEDS: Metoprolol Tartrate 25 MG TAB PO SCH ×2 (09:31→21:00)
[2021-10-12] MEDS: Apixaban 5 MG TAB PO SCH ×2 (09:31→21:00)
[2021-10-12] MEDS: Aspirin Chewable 81 MG TAB PO SCH (09:31)
[2021-10-12] MEDS: Nystatin Cream 15 GM TUBE TOP SCH ×3 (11:26→20:48)
[2021-10-12] MEDS: Dextrose 5 %-0.45 % NaCl 1,000 ML IV SCH ×2 (11:26→23:50)
[2021-10-12 12:26] VITALS: BP 125/71
[2021-10-12] MEDS: AA 4.25 %/CALCIUM/LYTES/D5W 2,000 ML IV SCH (18:19)
[2021-10-12] MEDS ORDERED: Furosemide 40 MG/4 ML VIAL SLOW IVP SCH (19:45)
[2021-10-13] MEDS: Levothyroxine Sodium 88 MCG TAB PO SCH (05:26)
[2021-10-13] MEDS: Meropenem 1 GM in Sodium Chloride 0.9% 100 ML IVPB SCH ×3 (05:26→20:03)
[2021-10-13 06:56] LABS: Hemoglobin 8.7 g/dL (14.0-18.0); Mean Corpuscular HGB CONC 29.9 g/dL (32.0-36.0); Mean Corpuscular Hemoglobin 27.3 pg (27.0-31.0); Mean Corpuscular Volume 91.3 fL (78.0-98.0); Mean Platelet Volume 8.5 fL (7.4-10.4); Platelet Count 127 thou/uL (130-400); RBC Distribution Width 18.6 % (11.5-14.5); Red Blood Cell (RBC) Count 3.19 mill/uL (4.70-6.10); White Blood Cell (WBC) Count 3.2 thou/uL (4.8-10.8)
[2021-10-13 07:19] LABS: ALT (SGPT) 20 U/L (8-55); AST (SGOT) 26 U/L (5-34); Albumin 2.3 g/dL (3.4-4.8); Alkaline Phosphatase 179 U/L (40-110); Anion Gap 15 mmol/L (10-20); BUN (Urea Nitrogen) 13 mg/dL (8.4-25.7); Bilirubin, Total 2.9 mg/dL (0.2-1.2); Calc. Creatinine Clearance 109 mL/min (70-130); Calcium 8.7 mg/dL (7.8-10.44); Carbon Dioxide 27 mmol/L (23-31); Chloride 111 mmol/L (98-107); Glucose 125 mg/dL (83-110); Potassium 3.2 mmol/L (3.5-5.1); Protein, Total 4.3 g/dL (5.8-8.1); Sodium 150 mmol/L (136-145)
[2021-10-13 07:29] LABS: Band 36 % (5-11); Hypochromia SLIGHT = 6-15 cells (100X) (0-5/hpf); Lymphocytes 4 % (21-51); MDiff Complete? YES; Metamyelocyte 4 % (0-0); Monocytes 3 % (0-10); Neutrophil 51 % (42-75); Ovalocytes SLIGHT = 2-5 cells (100X) (0-1/hpf); Platelet Morphology Comment Appears Decreased; Polychromasia SLIGHT = 2-3 cells (100X) (0-2/hpf); Reactive Lymphocytes 2 % (0-10); Vacuoles SLIGHT
[2021-10-13] MEDS: Lorazepam 2 MG/ML VIAL SLOW IVP PRN (09:13)
[2021-10-13] MEDS: Metoprolol Tartrate 25 MG TAB PO SCH ×2 (09:13→20:12)
[2021-10-13] MEDS: Apixaban 5 MG TAB PO SCH ×2 (09:13→20:12)
[2021-10-13] MEDS: Cholecalciferol 1,000 UNITS (25 MCG) TAB PO SCH (09:13)
[2021-10-13] MEDS: Aspirin Chewable 81 MG TAB PO SCH (09:13)
[2021-10-13] MEDS: Nystatin Cream 15 GM TUBE TOP SCH ×3 (09:14→20:11)
[2021-10-13] MEDS: Vancomycin 1 GM in Premix Bag 1 BAG IVPB SCH ×2 (09:16→20:26)
[2021-10-13] MEDS: Furosemide 20 MG/2 ML VIAL SLOW IVP SCH ×2 (09:16→20:04)
[2021-10-13] MEDS: Pantoprazole 40 MG VIAL IVP SCH ×2 (09:17→20:04)
[2021-10-13] MEDS: Potassium Chloride 20 MEQ in Premix Bag 1 BAG IVPB SCH ×2 (09:17→09:18)
[2021-10-13 12:28] VITALS: BMI 20.8
[2021-10-13] MEDS: Dextrose 5 %-0.45 % NaCl 1,000 ML IV SCH (13:21)
[2021-10-13] MEDS ORDERED: POTASSIUM PHOSPHATE IV SCH ×2 (14:00)
[2021-10-13] MEDS ORDERED: [UNRECOGNIZED DRUG - OTHER] IV SCH ×2 (14:00)
[2021-10-13] MEDS ORDERED: CALCIUM GLUCONATE IV SCH ×2 (14:00)
[2021-10-13] MEDS ORDERED: POTASSIUM ACETATE IV SCH ×2 (14:00)
[2021-10-13 20:06] VITALS: TEMP 98.8
[2021-10-14] MEDS ORDERED: POTASSIUM PHOSPHATE IV SCH (14:00)
[2021-10-14] MEDS ORDERED: POTASSIUM ACETATE IV SCH (14:00)
[2021-10-14] MEDS ORDERED: CALCIUM GLUCONATE IV SCH (14:00)
[2021-10-14] MEDS ORDERED: [UNRECOGNIZED DRUG - OTHER] IV SCH (14:00)
== END 2021-10-13 20:30 | DRG 871 ==
LOC: ERS 10:20 → 2NO 13:30 → MSONC 10-03 14:04 → IMCU/EMU 10-07 23:26
PROVIDERS: ADMIT Internal Medicine Geriatric Medicine; ATTEND Family Medicine
PROC: 0DH63UZ Insertion of Feeding Device into Stomach, Percutaneous Approach (ICD-10-PCS; principal; 2021-09-23)
PROC: 4A10X4Z Monitoring of Central Nervous Electrical Activity, External Approach (ICD-10-PCS; 2021-09-26)
PROC: 30233N1 Transfusion of Nonautologous Red Blood Cells into Peripheral Vein, Percutaneous Approach (ICD-10-PCS; 2021-10-04)
PROC: 02HV33Z Insertion of Infusion Device into Superior Vena Cava, Percutaneous Approach (ICD-10-PCS; 2021-10-13)
PROC: B5181ZA Fluoroscopy of Superior Vena Cava using Low Osmolar Contrast, Guidance (ICD-10-PCS; 2021-10-13)
PROC: B548ZZA Ultrasonography of Superior Vena Cava, Guidance (ICD-10-PCS; 2021-10-13)
PROC: 3E0436Z Introduction of Nutritional Substance into Central Vein, Percutaneous Approach (ICD-10-PCS; 2021-10-13)
DX: A41.52 Sepsis due to Pseudomonas (principal); G92.8 Other toxic encephalopathy; J18.9 Pneumonia, unspecified organism; J69.0 Pneumonitis due to inhalation of food and vomit; R64 Cachexia; N39.0 Urinary tract infection, site not specified; E87.1 Hypo-osmolality and hyponatremia; I47.2 Ventricular tachycardia; I47.1 Supraventricular tachycardia; E44.0 Moderate protein-calorie malnutrition; C83.10 Mantle cell lymphoma, unspecified site; J90 Pleural effusion, not elsewhere classified; D61.818 Other pancytopenia; E87.0 Hyperosmolality and hypernatremia; I48.92 Unspecified atrial flutter; K94.22 Gastrostomy infection; K94.29 Other complications of gastrostomy; I10 Essential (primary) hypertension; F32.A Depression, unspecified; Z66 Do not resuscitate; R13.10 Dysphagia, unspecified; D64.9 Anemia, unspecified; E86.0 Dehydration; F41.9 Anxiety disorder, unspecified; Z96.659 Presence of unspecified artificial knee joint; K25.9 Gastric ulcer, unspecified as acute or chronic, without hemorrhage or perforation; E87.6 Hypokalemia; B96.5 Pseudomonas (aeruginosa) (mallei) (pseudomallei) as the cause of diseases classified elsewhere; I48.0 Paroxysmal atrial fibrillation; F03.90 Unspecified dementia, unspecified severity, without behavioral disturbance, psychotic disturbance, mood disturbance, and anxiety; E03.9 Hypothyroidism, unspecified; Z20.822 Contact with and (suspected) exposure to COVID-19; Z88.8 Allergy status to other drugs, medicaments and biological substances; Z79.82 Long term (current) use of aspirin; Z79.899 Other long term (current) drug therapy; I69.391 Dysphagia following cerebral infarction; Z98.890 Other specified postprocedural states; Z79.01 Long term (current) use of anticoagulants
CPT/HCPCS: 36415; 36416; 36430; 36569; 49465; 51701; 70450; 71045; 71260; 74176; 74177; 74230; 80048; 80053; 80202; 81003; 81015; 82140; 82570; 82607; 82728; 82746; 83540; 83550; 83605; 83735; 83880; 83930; 83935; 84100; 84300; 84443; 84540; 84550; 85025; 85046; 85610; 86140; 86850; 86900; 86901; 87040; 87077; 87081; 87086; 87186; 93005; 93010; 95712; 95819; 95957; 96365; 96367; A4217; C9113; J0610; J0692; J0696; J1644; J1940; J1953; J2060; J2185; J2250; J2270; J2405; J3370; J3475; J3480; J3490; J7042; J7050; J7070; P9016; P9047; Q9967; S0028; U0002; U0003; U0005